=== PATIENT | male | born 1990 | race Caucasian/White ===

== ENCOUNTER 2017-04-28 02:59 | Emergency (ER) | payer OTHER ==
[~2017-04-28] VITALS: Ht 185.4 cm; Wt 102.1 kg
[~2017-04-28 02:59] MED LIST: ACID REDUCER; AMOXICILLIN500 MG PO; BACTRIM DS TAB1 EACH PO; BENTYL20 MG PO; CITALOPRAM HBR20 MG PO; EXCEDRIN MIGRA1 EAC1 PO; GUAIATUSSIN AC10 ML PO; IBUPROFEN600 MG PO; IBUPROFEN800 MG PO; KEFLEX500 MG PO; LAMOTRIGINE100 MG; NORCO 5-325 TA1 EACH PO; OMEPRAZOLE20 MG PO; PERCOCET 5-3251 EACH PO; POTASSIUM CHLO10 MEQ PO; PRILOSEC20 MG PO; PROMETHAZINE HC25 M1 PO; PROPRANOLOL HCL40 MG; PROZAC20 MG PO; SUCRALFATE1 GM PO; WELLBUTRIN XL150 MG; ZOFRAN ODT4 MG PO; ZOFRAN ODT4 MG SL
--- OUTSIDE RECORDS SUMMARY | 2017-04-28 04:59 | XMS ---
Demographics + + + | Address | [address] | | | [place] [address] | + + + | Preferred Language | Unknown | + + + | Marital Status | Unknown | + + + | Cheondoism Affiliation | Unknown | + + + | Race | Unknown | + + + | Ethnic Group | Unknown | + + + Author + + + | Author | [facility] | + + + | Organization | [facility] | + + + | Address | [address] | | | [place] [address] | + + + | Phone | | + + + Care Team Providers + + + + | Care Clinical Pharmacy Technician Name | Role | Phone | + + + + Unavailable | Unavailable | + + + + PROBLEMS + + + + + + + + | Type | Condition | ICD9-CM | [id number] | Onset | Condition | SNOMED | | | | Code | Code | Dates | Status | Code | + + + + + + + + | Assessment | Trauma to | S05.91XA | | August, | Active | [id number] | | | right eye | | | 2016 | | | + + + + + + + + ALLERGIES + + + + +--------+ | Substance | Reaction | Event Type | Date | Status | + + + + +--------+ | Depakote | anaphylaxis | Drug Allergy | August, | Active | + + + + +--------+ SOCIAL HISTORY No smoking Hx information available PLAN OF CARE VITAL SIGNS + + + + | Height | 73 in | 2016-09-05 | + + + + | Weight | 215.6 lbs | 2016-09-05 | + + + + | BMI | 28.44 kg/m2 | 2016-09-05 | + + + + | Temperature | 97.9 degrees Fahrenheit | 2016-09-05 | + + + + | Heart Rate | 73 /min | 2016-09-05 | + + + + | Blood pressure systolic | 116 mm Hg | 2016-09-05 | + + + + | Blood pressure diastolic | 62 mm Hg | 2016-09-05 | + + + + MEDICATIONS + + + + + + + +--------+ | Medicati | Instruct | Dosage | Frequenc | Start | End Date | Duration | Status | | on | ions | | y | Date | | | | + + + + + + + +--------+ | BuPROPio | Orally | 1 tablet | 24h | | | | Active | | n HCl | Once a | every | | | | | | | 150 MG | day | morning | | | | | | + + + + + + + +--------+ | Naproxen | Orally | 1 tablet | 12h | | | | Active | | 500 MG | Twice a | | | | | | | | | day | | | | | | | + + + + + + + +--------+ | Omeprazo | Orally | 1 | 24h | | | | Active | | le 40 MG | Once a | capsule | | | | | | | | day | | | | | | | + + + + + + + +--------+ | Erythrom | Ophthalm | 1 | 6h | 05 September, | 27 August, | 10 | Active | | ycin 5 | ic Four | applicat | | 2017 | 2017 | day(s) | | | MG/GM | times a | ion | | | | | | | | day | | | | | | | + + + + + + + +--------+ | Clonidin | Orally | 1 tablet | 24h | | | | Active | | e HCl | Once a | | | | | | | | 0.2 MG | day | | | | | | | + + + + + + + +--------+ RESULTS No Results PROCEDURES + + + + + | Procedure | Date Ordered | Related Diagnosis | Body Site | + + + + + | TDAP >7, IM | September 05, 2016 | | | + + + + + | IMMUNIZATION ADMIN | September 05, 2016 | | | + + + + + | Est Level IV | September 05, 2016 | | | | Extended | | | | + + + + + IMMUNIZATIONS + + + + + | Vaccine | Route | Administration Date | Status | + + + + + | TDAP >7, IM | IM Intramuscular | September 05, 2016 | Administered | + + + + +"
[2017-04-28] MEDS ORDERED: IBUPROFEN600 MG PO (05:51)
== END 2017-04-28 06:05 | disposition home or self-care (01) ==
LOC: ED 02:59
DX: S06.0X0A Concussion without loss of consciousness, initial encounter (principal); S02.2XXA Fracture of nasal bones, initial encounter for closed fracture; F17.200 Nicotine dependence, unspecified, uncomplicated; Z98.818 Other dental procedure status; Z88.8 Allergy status to other drugs, medicaments and biological substances; Y04.0XXA Assault by unarmed brawl or fight, initial encounter
CPT/HCPCS: 70160; 70450; 99284

== ENCOUNTER 2017-08-06 02:03 | Emergency (ER) | payer OTHER ==
[~2017-08-06] VITALS: Ht 185.4 cm; Wt 102.1 kg
== END 2017-08-06 03:43 | disposition home or self-care (01) ==
LOC: ED 02:03
DX: G43.809 Other migraine, not intractable, without status migrainosus (principal); F17.200 Nicotine dependence, unspecified, uncomplicated; Z88.8 Allergy status to other drugs, medicaments and biological substances
CPT/HCPCS: 70450; 80053; 81001; 85025; 96374; 96375; 99284; G0480; J1200; J2765

== ENCOUNTER 2018-06-21 03:24 | Emergency (ER) | payer SELFPAY ==
[~2018-06-21] VITALS: Ht 185.4 cm; Wt 76.2 kg
--- OUTSIDE RECORDS SUMMARY | 2018-06-21 03:28 | XMS ---
PreManage Notification: ED ENCARNACION Security Lead Mason Tender Events No recent Security Events currently on file CRITERIA MET - Group Notification CARE PROVIDERS [facility] Primary Care Current CARE PHONE: [phone] Care Guidelines exist for the following facilities: [facility] ( 07/02/2016 ) Care History Medical/Surgical 12/26/2014 [facility] ED visit: chest pain and SOB. Dx. abdominal pain. Rx.compazine and vicodin. Hernandez VISIT COUNT (12 MO.) 2 [facility] TOTAL 2 NOTE: Visits indicate total known visits. ED/UCC VISIT TRACKING (12 MO.) 06/21/2018 03:25 [facility] TYPE: Emergency COMPLAINT: - DENTAL PROBLEM 08/06/2017 02:04 [facility] [place] TYPE: Emergency COMPLAINT: - MENTAL HEALTH EVAL DIAGNOSES: - Allergy status to other drugs, medicaments and biological substances status - Headache - Nicotine dependence, unspecified, uncomplicated - Other migraine, not intractable, without status migrainosus INPATIENT VISIT TRACKING (12 MO.) No inpatient visits to display in this time frame [email or web address]
[2018-06-21] MEDS ORDERED: PENICILLIN V P500 MG PO (03:36)
[2018-06-21] MEDS ORDERED: ULTRAM50 MG PO (03:36)
== END 2018-06-21 03:54 | disposition home or self-care (01) ==
LOC: ED 03:24
DX: K08.89 Other specified disorders of teeth and supporting structures (principal); F41.9 Anxiety disorder, unspecified; F31.9 Bipolar disorder, unspecified; F43.10 Post-traumatic stress disorder, unspecified; F17.200 Nicotine dependence, unspecified, uncomplicated; Z88.8 Allergy status to other drugs, medicaments and biological substances; Z79.899 Other long term (current) drug therapy
CPT/HCPCS: 99282

== ENCOUNTER 2019-02-10 20:33 | Emergency (ER) | payer SELFPAY ==
[~2019-02-10] VITALS: Ht 185.4 cm; Wt 76.2 kg
[~2019-02-10 20:33] MED LIST changes: +PENICILLIN V P500 MG PO; +ULTRAM50 MG PO
[2019-02-10] MEDS ORDERED: BACTRIM DS TAB1 EACH PO (21:24)
== END 2019-02-10 21:41 | disposition home or self-care (01) ==
LOC: ED 20:33
PROC: 0H98XZZ Drainage of Buttock Skin, External Approach (ICD-10-PCS; principal; 2019-02-10)
DX: L05.01 Pilonidal cyst with abscess (principal); F17.200 Nicotine dependence, unspecified, uncomplicated; Z88.8 Allergy status to other drugs, medicaments and biological substances
CPT/HCPCS: 10080; 99283-25

== ENCOUNTER 2019-04-22 15:09 | Emergency (ER) | payer BC ==
[~2019-04-22] VITALS: Ht 185.4 cm; Wt 73.9 kg
--- OUTSIDE RECORDS SUMMARY | ~2019-04-22 | XMS | Encounter Summary ---
Demographics + + + | Address | [address] | | | [place] [address] | + + + | Home Phone | | + + + | Preferred Language | Unknown | + + + | Marital Status | Single | + + + | Yarsanism Affiliation | Unknown | + + + | Race | Unknown | + + + | Ethnic Group | Unknown | + + + Author + + + | Author | [facility] | | | and [place] | + + + | Organization | [facility] | | | and [place] | + + + | Address | Unknown | + + + | Phone | Unavailable | + + + Support + + +---------+ + | Name | Relationship | Address | Phone | + + +---------+ + | Jess Alonso | ECON | Unknown | | + + +---------+ + | Royer Unknown | ECON | Unknown | | + + +---------+ + Care Team Providers + +------+ + | Care [place] Worker Name | Role | Phone | + +------+ + PCP | Unavailable | + +------+ + Encounter Details +--------+ + + + + | Date | Type | Department | Care Team | Description | +--------+ + + + + | 05/22/ | [facility] | [facility] | Jeremías, | | | 2005 | Encounter | [facility] | Ivan Barahona MD [address] | | | | | [place] [address] | [address] [place] | | | | | [place], [place] | [place] [address] | | | | | [address] | [phone] | | | | | [phone] | | | +--------+ + + + + Social History + +-------+ +--------+------+ | Tobacco Use | Types | Packs/Day | Years | Date | | | | | Used | | + +-------+ +--------+------+ | Never Assessed | | | | | + +-------+ +--------+------+ + + + | Sex Assigned at | Date Recorded | | | | + + + | Not on file | | + + + + + + + | Job Start Date | Occupation | Industry | + + + + | Not on file | Not on file | Not on file | + + + + + + + + | Travel History | Travel Start | Travel End | + + + + + + | No recent travel history available. | + + documented as of this encounter Plan of Treatment Not on filedocumented as of this encounter Visit Diagnoses Not on filedocumented in this encounter"
--- OUTSIDE RECORDS SUMMARY | ~2019-04-22 | XMS | Encounter Summary ---
Demographics + + + | Address | [address] | | | [place] [address] | + + + | Home Phone | | + + + | Preferred Language | Unknown | + + + | Marital Status | Single | + + + | Hindu Affiliation | Unknown | + + + | Race | Unknown | + + + | Ethnic Group | Unknown | + + + Author + + + | Author | [facility] | | | and Rajana | + + + | Organization | [facility] | | | and Rajana [...] Team Providers + +------+ + | Care Answering Service Agent Name | Role | Phone | + +------+ + | Tono Salinas | PCP | | + +------+ + Reason for Referral Evaluate & Treat (Routine) +--------+ + + + + + | Status | Reason | Specialty | Diagnoses / | Referred By | Referred To | | | | | Procedures | Contact | Contact | +--------+ + + + + + | Closed | Specialty | Gastroenterol | Diagnoses | | Georgie, | | | Services | ogy | Rectal | [place], | MD Robin | | | Required | | bleeding | Sarah, | [address] | | | | | Abdominal | [facility] [address] | [place], | | | | | pain, | [place], [place] | [place] [address] | | | | | generalized | [address] [place] | Phone: | | | | | Diarrhea | [place], [place] | [phone] | | | | | Celiac sprue | [address] | Fax: | | | | | Tobacco | Phone: | [phone] | | | | | use disorder | [phone] | | | | | | Procedures | Fax: | | | | | | [place] | [phone] | | | | | | COLONOSCOPY | | | | | | | FLX DX | | | | | | | W/COLLJ SPEC | | | | | | | WHEN PFRMD | | | | | | | OK | | | | | | | COLONOSCOPY | | | | | | | W/BIOPSY | | | | | | | SINGLE/MULTI | | | | | | | PLE OK | | | | | | | COLSC FLX | | | | | | | W/RMVL OF | | | | | | | TUMOR POLYP | | | | | | | LESION SNARE | | | | | | | TQ OK | | | | | | | ESOPHAGOGAST | | | | | | | RODUODENOSCO | | | | | | | PY TRANSORAL | | | | | | | DIAGNOSTIC | | | | | | | OK EDG | | | | | | | TRANSORAL | | | | | | | BIOPSY | | | | | | | SINGLE/MULTI | | | | | | | PLE | | | | | | | 05/01>PEND | | | | | | | PCP UPDATE | | | +--------+ + + + + + Reason for Visit + + + | Reason | Comments | + + + | Abdominal Pain | | + + + | Emesis | | + + + | Diarrhea | | + + + Evaluate & Treat (Routine) +--------+--------+ + + + + | Status | Reason | Specialty | Diagnoses / | Referred By | Referred To | | | | | Procedures | Contact | Contact | +--------+--------+ + + + + | Closed | | Gastroenterol | Diagnoses | [place], | [facility] | | | | ogy | Abdominal | Tono Sesay, | Gastroenterol | | | | | Pain/vomitin | [facility] [address] | [address] | | | | | g and | [address] | [address] [place] | | | | | Diarrhea | [place], | [address] [place] | | | | | Procedures | [place] | [place], [place] | | | | | Office Visit | [address] | [address] | | | | | | Phone: | Phone: | | | | | | [phone] | [phone] | | | | | | Fax: | Fax: | | | | | | [phone] | [phone] | +--------+--------+ + + + + Encounter Details +--------+---------+ + + + | Date | Type | Department | Care Team | Description | +--------+---------+ + + + | 01/25/ | Office | [facility] [place] | [place], | Rectal bleeding | | 2015 | Visit | GASTROENTEROLOGY | ROB Smith [address] | (Primary Dx); | | | | [address] [place] | [place], [place] [address] | Abdominal pain, | | | | [address] [place], [place] | [place], [place] | generalized; | | | | [address] | [address] | Diarrhea; Celiac | | | | [phone] | | sprue; Tobacco use | | | | | | disorder; Panic | | | | | | disorder | +--------+---------+ + + + Social History + + + +--------+------+ | Tobacco Use | Types | Packs/Day | Years | Date | | | | | Used | | + + + +--------+------+ | Current Every Day | Cigarettes | 0.5 | | | | Smoker | | | | | + + + +--------+------+ + + | Tobacco Cessation: Ready to Quit: No; Counseling Given: Yes | + + + + +---------+ + | Alcohol Use | Drinks/Week | oz/Week | Comments | + + +---------+ + | No | 0 Standard drinks | 0.0 | | | | or equivalent | | | + + +---------+ + + + + | Sex Assigned at [...] + + documented as of this encounter Last Filed Vital Signs + + + + + | Vital Sign | Reading | Time Taken | Comments | + + + + + | Blood Pressure | 120/70 | 01/25/2015 8:54 AM | | | | | PDT | | + + + + + | Pulse | 73 | 01/25/2015 8:54 AM | | | | | PDT | | + + + + + | Temperature | 36.5 C (97.7 F) | 01/25/2015 8:54 AM | | | | | PDT | | + + + + + | Respiratory Rate | 16 | 01/25/2015 8:54 AM | | | | | PDT | | + + + + + | Oxygen Saturation | 94% | 01/25/2015 8:54 AM | | | | | PDT | | + + + + + | Inhaled Oxygen | - | - | | | Concentration | | | | + + + + + | Weight | 96.7 kg (213 lb 3.2 | 01/25/2015 8:54 AM | | | | oz) | PDT | | + + + + + | Height | 185.4 cm (6' 1") | 01/25/2015 8:54 AM | | | | | PDT | | + + + + + | Body Mass Index | 28.13 | 01/25/2015 8:54 AM | | | | | PDT | | + + + + + documented in this encounter Patient Instructions Patient Instructions Sarah Cheatham ARNP - 01/25/2015 9:15 AM PDT Gluten-Free Diet for Celiac Disease You ve been told that you have celiac disease. This means that you are sensitive to a pro tein called gluten. Gluten is found in certain grains. When you ingest gluten, your immune s ystem causes harm to your intestines. The treatment for celiac disease is to avoid foods and products that contain gluten. You will need to do this for the rest of your life. Avoid the temptation to cheat, even a small amount of gluten can cause symptoms to return. And it canharm to your body. This sheet gives you the basics about a gluten-free diet. If you need help, a registered dietitian (RD) can teach you what foods and other products have glut en and how to avoid them. Always Read Labels! Many foods may contain gluten, even if you think they don t. Get into the habit of readin g ingredient labels before you eat. Choosing Foods The most common source of gluten is wheat flour (this includes white flour). Wheat fl our is used to make many baked goods, including breads, pastas, cereals, pastries, and pizza dough. But gluten is also found in many foods that you might not think would have it. You w ill need to read food labels to look for gluten in everything you eat. But your diet does no t need to be boring. Many foods are naturally gluten-free. And many foods commonly made with wheat flour now come in gluten-free forms. But keep in mind that if something is labeled wheat-free it may not be also gluten-free. Foods to Avoid Foods You Can Eat Bread, cereals, pasta, pastries, couscous, or pizza dough made with wheat flour (this inclu niko white flour and semolina) Bread, cereals, pasta, pastries, or pizza dough made with rice flour, almond flour, beans, potatoes, or other substitutes Foods containing rye, barley (including malt), spelt, kamut, or bulgur Foods containing cor n, rice, amaranth, buckwheat, millet, quinoa, or tapioca Processed meats Fresh meats and seafood (beef, chicken, turkey, licea, pork, fish, shellfish ) Some dairy products with additives Many plain dairy products Many sauces, gravies, dressings, and condiments Vinegar, oils, and gluten-free substitutes Some granola bars and energy bars Gluten-free granola bars and energy bars Some beers and spirits Wine, and gluten-free beers and spirits Some soups Gluten-free soups Fruits and vegetables that are fried or breaded Fresh fruits and vegetables Many packaged foods Beans Oats (check with your healthcare provider) Tofu Communion wafers Gluten-free communion wafers Avoiding Accidental Exposure to Gluten Staying gluten-free means always being aware. Even if you are very careful, mistakes can murray ppen. The food you eat can t come into contact with gluten. Your meals must be made with u tensils that have not touched foods that contain gluten. Shared knives, cutting boards, toas ters, and storage containers are risks for gluten exposure. Shared condiments may have crumb s that contain gluten. At restaurants, parties, and other places where you eat food prepared by others, ask how the food was made. Gluten can also be found in some non-food items. Some medications contain gluten. So do some vitamin supplements. Ask your pharmacist before taki ng a medication or supplement. Also, some shampoos, lotions, makeup, glues, soaps, and other products contain gluten. It can be possible to ingest some gluten when using these projects . This is called cross-contamination. For example, this can happen if you use a lotion that has gluten and then touch food you eat. Also note that Play-Hina and similar products have gl uten. Any adult or child with celiac disease should wash their hands after handling these. Coping with Gluten-Free Living Living gluten-free can be hard. While there are many gluten-free foods now that you can buy , it is still a big change for many people. You may be upset that you can t eat your favor ite foods,eat freely at restaurants, parties, or over the holidays. Household members may also be upset by the strict controls over food. If you face problems like these, think about joining a celiac disease support group. Support groups offer tips on how to make a gluten-f ree lifestyle easier on you and the people you live with. You can find ways to involve the p eople in your household. There are many ways to make gluten-free group meals. See More Re sources below for help in finding a group. Bring safe foods that you enjoy to parties and school or work events. This can help you corrie id the urge to grab something you shouldn t eat. Following Up with Your Health Care Provider You should see your health care provider at least once a year for a celiac checkup. A simpl e blood test can show if your celiac disease is under control. If you are having symptoms, y our health care provider can help you find sources of gluten you may have missed. More Resources To learn more about managing celiac disease, try these resources: Celiac Disease Foundation: www.celiac.org Academy of Nutrition and Dietetics: www.eatright.org National Digestive Diseases Information Clearinghouse: www.digestive.niddk.nih.gov 4103-[address]657 [address] [place] [address]. All [facility] ts reserved. This information is not intended as a substitute for professional medical care. Always follow your healthcare professional's instructions. documented in this encounter Progress Notes Sarah Cheatham ARNP - 01/25/2015 9:06 AM PDTFormatting of this note might be differe nt from the original. Tonio Crowder is a 24 y.o. male referred by ROB Hill for evaluation and tr eatment of rectal bleeding and hematemesis History of present illness: Patient notes that he was having issues related to rectal bleeding and hematemesis. Startin g 04/2014. Had multiple tests which were all negative with the exception of celiac antibodies . He has not been followed a gluten free diet. Admits to being lactose intolerant as well. He continues to have abdominal pains. Abdominal pains seemed to worsen following hernia rep air 12/2013. Pain is in upper abdomen. Pain is intermittent daily. Pain is described as cram ping and sharp. Pain can also be dull. Nothing seems to make better or worse. Rectal bleeding lasted about 1 month. Last episode was about 1 month ago. He is not losing weight due to any symptoms. Has BM daily. BM are mainly diarrhea. Can have 5-8 BM per day. Denies rashes or mouth sores. Complains of generalized joint pains. Allergies Allergen Reactions Valproic Acid Shortness Of Breath Citalopram Other (See Comments) Sedation Past Medical History Diagnosis Date Major depression (HCC) Anxiety Common migraine Knee pain, bilateral Obesity Abdominal pain, left lower quadrant Vomiting alone Diarrhea Past Surgical History Procedure Laterality Date Hernia repair Family History Problem Relation Age of Onset Diabetes Mother Cancer Mother uterine Alcohol abuse Father History Social History Marital Status: Single Spouse Name: N/A Number of Children: 2 Years of Education: N/A Occupational History Not on file. Social History Main Topics Smoking status: Current Every Day Smoker -- 0.50 packs/day Types: Cigarettes Smokeless tobacco: Not on file Alcohol Use: No Drug Use: No Sexual Activity: Not on file Other Topics Concern Not on file Social History Narrative Review of systems: Constitutional:Denies any fevers, chills, or unintentional weight loss. Eyes:Complains of dry,burning eyes. Respiratory:Denies shortness of breath, cough or wheezing. Gastrointestinal:Complains of diarrhea, bloody stools, hematemesis, nausea, vomiting, heart burn, and abdominal pain. Denies constipation, hemorrhoids or dysphagia. Skin: Denies rashes. Neurological:Complains of memory difficulties and frequent bothersome headaches. Denies num bness or tingling, muscle weakness, paralysis of arms or legs, epilepsy or seizure. ENT:Denies hearing loss, hearing aids, hearing ringing or buzzing in ears, constantly runny nose, nasal obstruction, hayfever, dentures, or hoarseness. Cardiovascular:Denies chest pain, palpitations, or swelling to legs :Denies painful urination, urine incontinence, waking up on average more than once per ni ght to urinate, bloody urine, or impotence Musculoskeletal:Complains of swollen joints, painful back, and painful joints. Psychiatric:Complains of depression and anxiety. Endocrine:Denies enlarged thyroid Heme/lymph:Denies anemia or enlarged lymph glands. Physical exam: General: well developed, well nourished, in no acute distress. Head: normocephalic and atraumatic Eyes: Sclera clear Mouth: MMM Lungs: Clear to auscultate bilaterally and throughout Heart: regular rate and rhythm Abdomen: Soft, diffusely tender to palpation, non distended, bowel tones positive times 4 quadra nts, negative Kelsey's sign, negative rebound tenderness, no guarding, no hepatosplenomegaly palpated. Rectal: Will be done prior to procedure Msk: symmetrical with no deformity, with normal posture and gait, normal strength. Extremities: no clubbing, cyanosis, edema, or deformity noted Neurologic: no focal deficits, cranial nerves II-XII grossly intact Skin: intact without lesions or rashes. Psych: alert and cooperative; normal mood and affect; normal attention span and concentration. No visits with results within 1 Month(s) from this visit. Latest known visit with results is: Abstract on 10/18/2014 Component Date Value Ref Range Status MCH 09/10/2014 30.5 Final MCHC 09/10/2014 34.6 Final BASOPHILS % 09/10/2014 0.4 Final ESR 09/10/2014 8 Final ANION GAP 09/10/2014 10 Final BUN/Creatinine Ratio 09/10/2014 7.3 Final Osmolality Calc 09/10/2014 277.0 Final Globulin 09/10/2014 2.8 Final Albumin/Globulin Ratio 09/10/2014 1.54 Final Giardia Ab 05/16/2014 Negative Final Trichomonas vaginosis 05/16/2014 Non Seen Final Creatinine, External 09/10/2014 1.1 0.7 - 1.3 Final eGFR, External 09/10/2014 >60 60 - [id number] Final WBC, External 09/10/2014 9.4 4.5 - 10 Final HGB, External 09/10/2014 16.0 11.8 - 16 Final HCT, External 09/10/2014 46.3 38.9 - 51.5 Final PLT, External 09/10/2014 254 150 - 400 Final Neutrophils %, External 09/10/2014 63.3 Final Lymphocytes %, External 09/10/2014 23.8 Final Monocytes %, External 09/10/2014 10.3 Final Eosinophils %, External 09/10/2014 2.2 Final Neutrophils, Absolute, External 09/10/2014 6.0 2 - 7.3 Final Lymphocytes, Absolute, External 09/10/2014 2.2 0.5 - 3.3 Final Monocytes, Absolute, External 09/10/2014 1.0 0.2 - 1 Final Eosinophils, Absolute 09/10/2014 0.2 0 - 0.4 Final Basophils, Absolute 09/10/2014 0 0 - 0.1 Final RBC, External 09/10/2014 5.26 4.4 - 6 Final MCV, External 09/10/2014 88 80 - 100 Final RDW, External 09/10/2014 13 9.6 - 14.6 Final Sodium, External 09/10/2014 134* 135 - 145 Final Potassium, External 09/10/2014 3.4* 3.5 - 5.1 Final Chloride, External 09/10/2014 102 100 - 110 Final Carbon Dioxide, External 09/10/2014 25 22 - 32 Final Calcium, External 09/10/2014 9.4 8.3 - 10.5 Final Protein, Total, External 09/10/2014 7.1 6 - 8 Final Albumin, External 09/10/2014 4.3 3.2 - 5.5 Final ALP, External 09/10/2014 94* 32 - 92 Final AST, External 09/10/2014 35 5 - 150 Final ALT, External 09/10/2014 42 10 - 60 Final Glucose, External 09/10/2014 116* 70 - 100 Final BUN, External 09/10/2014 8 7 - 23 Final Tissue Transglutaminase IgA 05/14/2014 128* 7 Final Tissue Transglutaminase IgG 05/14/2014 1.1 7 Final Endomysial Ab, IgA, Quant 05/14/2014 1:80 Final Assessment: Plan: Patient to have EGD and colonoscopy for further evaluation. The procedural techniques, risk s, indications, and alternatives were discussed. Among the risks, are perforation, bleeding , infection, allergic/adverse reactions to medications, and cardiovascular complications. E ach of these could result in hospitalization, additional procedures (including surgery), or other life threatening complications. Patient verbalized understanding. Risk factors to col o-rectal cancer discussed with patient including smoking, obesity, excessive red meat ingest ion, advancing age and first degree family relative with history of colo-rectal cancer discu ssed with patient. Patient to call with any questions or concerns prior to procedure. Highly discouraged tobacco use. He is to begin a gluten free diet. Due to diagnosis of celiac disease, symptoms can be asso ciated with gluten exposure. Procedures will determine if evidence of IBD. Recommend procedure with anesthesia due to panic disorder. Will follow up with results. Patient is to call with any question or concerns. Any fevers, chills, chest pain, SOB or other serious symptoms patient is to call the office or go to ER . Cc: ROB Hill This note was dictated using voice recognition software. Please contact me if there are an y questions regarding its content. Electronically signed by ROB Branch at 01/20 9:27 PM PDTdocumented in this encounter Plan of Treatment + + +--------+ + + | Name | Type | Priori | Associated Diagnoses | Order Schedule | | | | ty | | | + + +--------+ + + | Ambulatory referral | Outpatient | Routin | Rectal bleeding | Expected: 02/03/2015 | | to Gastroenterology | Referral | e | Abdominal pain, | (Approximate), | | (GEORGIE) | | | generalized | Expires: 01/25/2016 | | | | | Diarrhea Celiac | | | | | | sprue Tobacco use | | | | | | disorder | | + + +--------+ + + documented as of this encounter Visit Diagnoses + + | Diagnosis | + + | Rectal bleeding - Primary Hemorrhage of rectum and anus | + + | Abdominal pain, generalized | + + | Diarrhea | + + | Celiac sprue Celiac disease | + + | Tobacco use disorder | + + | Panic disorder Panic disorder without agoraphobia | + + documented in this encounter
--- OUTSIDE RECORDS SUMMARY | ~2019-04-22 | XMS | Encounter Summary ---
Demographics + + + | Address | [address] | | | [place] [address] | + + + | Home Phone | | + + + | Preferred Language | Unknown | + + + | Marital Status | Single | + + + | Pentecostal Affiliation | Unknown | + + + | Race | Unknown | + + + | Ethnic Group | Unknown | + + + Author + + + | Author | [facility] | | | and Rajana | + + + | Organization | [facility] | | | and Rajana | + + + | Address | Unknown | + + + | Phone | Unavailable | + + + Support + + +---------+ + | Name | Relationship | Address | Phone | + + +---------+ + | Jess Alonso | ECON | Unknown | | + + +---------+ + | Royer Roberto Carlos | ECON | Unknown | | + + +---------+ + Care Team Providers + +------+ + | Care Thread Cutter Name | Role | Phone | + +------+ + | Tono Salinas | PCP | | + +------+ + Reason for Visit +--------+ + | Reason | Comments | +--------+ + | Other | egd/colon | +--------+ + Encounter Details +--------+ + + + + | Date | Type | Department | Care Team | Description | +--------+ + + + + | 02/01/ | [facility] | [facility], | Other (egd/colon) | | 2014 | | GASTROENTEROLOGY | ROB Smith [address] | | | | | [address] [place] | [place], [place] [address] | | | | | [address] [place], [place] | [place], [place] | | | | | [address] | [address] | | | | | [phone] | | | +--------+ + + + + Social History + + + +--------+------+ | Tobacco Use | Types | Packs/Day | Years | Date | | | | | Used | | + + + +--------+------+ | Current Every Day | Cigarettes | 0.5 | | | | Smoker | | | | | + + + +--------+------+ + + +---------+ + | Alcohol Use [...]
--- OUTSIDE RECORDS SUMMARY | ~2019-04-22 | XMS | Encounter Summary ---
Demographics + + + | Address | [address] | | | [place] [address] | + + + | Home Phone | | + + + | Preferred Language | Unknown | + + + | Marital Status | Single | + + + | Worship Affiliation | Unknown | + + + | Race | Unknown | + + + | Ethnic Group | Unknown | + + + Author + + + | Author | [facility] | | | and Rajana | + + + | Organization | [facility] | | | and Rajana | + + + | Address | Unknown | + + + | Phone | Unavailable | + + + Support + + +---------+ + | Name | Relationship | Address | Phone | + + +---------+ + | Jess Alosno | ECON | Unknown | | + + +---------+ + | Royer Unknown | ECON | Unknown | | + + +---------+ + Care Team Providers + +------+ + | Care Catering Cook Name | Role | Phone | + +------+ + PCP | Unavailable | + +------+ + Encounter Details +--------+ + + + + | Date | Type | Department | Care Team | Description | +--------+ + + + + | 05/22/ | [facility] | [facility] | Jeremías, | | | 2005 | Encounter | [facility] | Ivan Barahona MD [address] | | | | | [place] [address] | [address] [place] | | | | | [place], [place] | [place] [address] | | | | | [address] | [phone] | | | | | [phone] | | | +--------+ + + + [...]
--- OUTSIDE RECORDS SUMMARY | ~2019-04-22 | XMS | Encounter Summary ---
Demographics + + + | Address | [address] | | | [place] [address] | + + + | Home Phone | | + + + | Preferred Language | Unknown | + + + | Marital Status | Single | + + + | Protestant Affiliation | Unknown | + + + | Race | Unknown | + + + | Ethnic Group | Unknown | + + + Author + + + | Author | [facility] | | | and [place]ana | + + + | Organization | [facility] | | | and Rajana | [...] Team Providers + +------+ + | Care Final Assembly And Packing Supervisor Name | Role | Phone | + +------+ + PCP | Unavailable | + +------+ + Encounter Details +--------+ + + + + | Date | Type | Department | Care Team | Description | +--------+ + + + + | 09/23/ | Abstract | [facility] | [place], | | | 2014 | | GASTROENTEROLOGY | ROB Smith [address] | | | | | [address] [place] | [place] | | | | | [address] [place], [place] | [place], [place] | | | | | [address] | [address] | | | | | [phone] | | | +--------+ + + + [...] Not on filedocumented as of this encounter Procedures + +--------+ + + + | Procedure Name | Priori | Date/Time | Associated Diagnosis | Comments | | | ty | | | | + +--------+ + + + | TISSUE | Routin | 05/13/2014 | | Results for this | | TRANSGLUTAMINASE | e | | | procedure are in the | | (IGA + IGG) | | | | results section. | + +--------+ + + + | ENDOMYSIAL AB, IGA | Routin | 05/13/2014 | | Results for this | | | e | | | procedure are in the | | | | | | results section. | + +--------+ + + + | EXTERNAL LAB: BUN | Routin | 05/12/2014 | | Results for this | | | e | | | procedure are in the | | | | | | results section. | + +--------+ + + + | EXTERNAL LAB: | Routin | 05/12/2014 | | Results for this | | GLUCOSE | e | | | procedure are in the | | | | | | results section. | + +--------+ + + + | EXTERNAL LAB: ANNA | Routin | 05/12/2014 | | Results for this | | | e | | | procedure are in the | | | | | | results section. | + +--------+ + + + | EXTERNAL LAB: ALT | Routin | 05/12/2014 | | Results for this | | | e | | | procedure are in the | | | | | | results section. | + +--------+ + + + | EXTERNAL LAB: AST | Routin | 05/12/2014 | | Results for this | | | e | | | procedure are in the | | | | | | results section. | + +--------+ + + + | EXTERNAL LAB: | Routin | 05/12/2014 | | Results for this | | ALKALINE PHOSPHATASE | e | | | procedure are in the | | | | | | results section. | + +--------+ + + + | EXTERNAL LAB: | Routin | 05/12/2014 | | Results for this | | BILIRUBIN, TOTAL | e | | | procedure are in the | | | | | | results section. | + +--------+ + + + | EXTERNAL LAB: | Routin | 05/12/2014 | | Results for this | | ALBUMIN | e | | | procedure are in the | | | | | | results section. | + +--------+ + + + | EXTERNAL LAB: | Routin | 05/12/2014 | | Results for this | | PROTEIN, TOTAL | e | | | procedure are in the | | | | | | results section. | + +--------+ + + + | EXTERNAL LAB: | Routin | 05/12/2014 | | Results for this | | CALCIUM | e | | | procedure are in the | | | | | | results section. | + +--------+ + + + | EXTERNAL LAB: CARBON | Routin | 05/12/2014 | | Results for this | | DIOXIDE | e | | | procedure are in the | | | | | | results section. | + +--------+ + + + | EXTERNAL LAB: | Routin | 05/12/2014 | | Results for this | | CHLORIDE | e | | | procedure are in the | | | | | | results section. | + +--------+ + + + | EXTERNAL LAB: | Routin | 05/12/2014 | | Results for this | | POTASSIUM | e | | | procedure are in the | | | | | | results section. | + +--------+ + + + | EXTERNAL LAB: SODIUM | Routin | 05/12/2014 | | Results for this | | | e | | | procedure are in the | | | | | | results section. | + +--------+ + + + | EXTERNAL LAB: | Routin | 05/12/2014 | | Results for this | | URINALYSIS | e | | | procedure are in the | | | | | | results section. | + +--------+ + + + | EXTERNAL LAB: CBC | Routin | 05/12/2014 | | Results for this | | | e | | | procedure are in the | | | | | | results section. | + +--------+ + + + | TRICHROME STAIN | Routin | 05/12/2014 | | Results for this | | | e | | | procedure are in the | | | | | | results section. | + +--------+ + + + | EXTERNAL LAB: EGFR | Routin | 05/12/2014 | | Results for this | | | e | | | procedure are in the | | | | | | results section. | + +--------+ + + + | EXTERNAL LAB: | Routin | 05/12/2014 | | Results for this | | CREATININE | e | | | procedure are in the | | | | | | results section. | + +--------+ + + + | C. DIFFICILE TOXIN, | Routin | 05/12/2014 | | Results for this | | ANTIBODY | e | | | procedure are in the | | | | | | results section. | + +--------+ + + + | CULTURE, STOOL | Routin | 05/12/2014 | | Results for this | | RESULT | e | | | procedure are in the | | | | | | results section. | + +--------+ + + + | SEDIMENTATION RATE | Routin | 05/12/2014 | | Results for this | | | e | | | procedure are in the | | | | | | results section. | + +--------+ + + + | FECAL LEUKOCYTES | RODNEY | 05/12/2014 | | Results for this | | | | | | procedure are in the | | | | | | results section. | + +--------+ + + + | GIARDIA JOAQUIM EIA, | Routin | 05/12/2014 | | Results for this | | STOOL | e | | | procedure are in the | | | | | | results section. | + +--------+ + + + | COMPREHENSIVE | Routin | 05/12/2014 | | Results for this | | METABOLIC PANEL | e | | | procedure are in the | | | | | | results section. | + +--------+ + + + documented in this encounter Results Endomysial Ab IgA (05/13/2014) + + + + + + | Component | Value | Ref Range | Performed | Pathologist | | | | | At | Signature | + + + + + + | Endomysial | 1.80 (A) | 1.10 | [facility] | | | [place], | | | [facility] | | | Qual | | | MEDICAL | | | | | | CENTER - | | | | | | LABORATORY | | + + + + + + + + | Specimen | + + | Blood specimen | | (specimen) | + + + + + + + | Performing | Address | City/State/Zipcode | Phone Number | | Organization | | | | + + + + + | [facility] | [address] | [place] | | | [facility] | | [address] | | | - LABORATORY | | | | + + + + + Tissue Transglutaminase (IgA + IgG) (05/13/2014) + +---------+ + + + | Component | Value | Ref Range | Performed | Pathologist | | | | | At | Signature | + +---------+ + + + | Tissue | 1.1 (A) | 7 - 10 U/mL | | | | Transglutam | | | | | | inase IgG | | | | | + +---------+ + + + | Tissue | >128 | 7 - 10 U/mL | | | | Transglutam | | | | | | inase IgA | | | | | + +---------+ + + + + + | Specimen | + + | Blood specimen | | (specimen) | + + External Lab: Urinalysis (05/12/2014) + + + + + + | Component | Value | Ref Range | Performed | Pathologist | | | | | At | Signature | + + + + + + | UA Blood, | Trace | | EXTERNAL | | | External | | | LAB | | + + + + + + | UA Glucose, | Normal | | EXTERNAL | | | External | | | LAB | | + + + + + + | UA Ketones, | 15 (A) | 0 - 0 | EXTERNAL | | | External | | | LAB | | + + + + + + | UA Ph, | 6 | 5 - 9 | EXTERNAL | | | External | | | LAB | | + + + + + + | UA | Negative | | EXTERNAL | | | Proteins, | | | LAB | | | External | | | | | + + + + + + | UA Specific | 1.023 | 1.005 - 1.03 | EXTERNAL | | | [place], | | | LAB | | | External | | | | | + + + + + + | UA | Negative | | EXTERNAL | | | Leukocyte | | | LAB | | | Esterase, | | | | | | External | | | | | + + + + + + | COLLECTION | clean catch | | EXTERNAL | | | METHOD 1 | | | LAB | | + + + + + + | Color | Yellow | | EXTERNAL | | | | | | LAB | | + + + + + + | Clarity | Clear | | EXTERNAL | | | | | | LAB | | + + + + + + | Bilirubin, | Negative | Negative | EXTERNAL | | | Urine | | | LAB | | + + + + + + | Nitrite, | Negative | Negative | EXTERNAL | | | Urine | | | LAB | | + + + + + + | Urobilinoge | Normal | < 0.2 mg/dL, | EXTERNAL | | | n, Urine | | 1.0 mg/dL, 4.0 | LAB | | | | | mg/dL, Normal, | | | | | | 1.0 E.U./dL, | | | | | | 0.2 E.U./dL, | | | | | | 0.2 mg/dL, | | | | | | Negative, 1 | | | | | | mg/dL, <2.0 | | | | | | mg/dL | | | + + + + + + | CASTS | Negative | | EXTERNAL | | | | | | LAB | | + + + + + + | WBC UA | 0-2 | 0 - 2 /HPF | EXTERNAL | | | | | | LAB | | + + + + + + | Epithelial | Negative | | EXTERNAL | | | Cells | | | LAB | | + + + + + + | CRYSTAL UA | Negative | | EXTERNAL | | | | | | LAB | | + + + + + + | BACTERIA UA | Negative | Negative /HPF | EXTERNAL | | | | | | LAB | | + + + + + + + + | Resulting Agency Comment | + + | [facility] | + + + +---------+ + + | Performing | Address | City/State/Zipcode | Phone Number | | Organization | | | | + +---------+ + + | EXTERNAL LAB | | | | + +---------+ + + External Lab: CBC (05/12/2014) + + + + + + | Component | Value | Ref Range | Performed | Pathologist | | | | | At | Signature | + + + + + + | WBC, | 6.1 | 4.5 - 11 | EXTERNAL | | | External | | | LAB | | + + + + + + | HGB, | 15.2 | 13.5 - 18 | EXTERNAL | | | External | | | LAB | | + + + + + + | HCT, | 47.9 | 41 - 50 | EXTERNAL | | | External | | | LAB | | + + + + + + | PLT, | 221 | 140 - 440 | EXTERNAL | | | External | | | LAB | | + + + + + + | Neutrophils | 60.5 | 39 - 80 | EXTERNAL | | | %, | | | LAB | | | External | | | | | + + + + + + | Lymphocytes | 23.6 (A) | 24 - 44 | EXTERNAL | | | %, | | | LAB | | | External | | | | | + + + + + + | Monocytes | 11.1 | 0 - 12 | EXTERNAL | | | %, External | | | LAB | | + + + + + + | Eosinophils | 2.5 | 0 - 6 | EXTERNAL | | | %, | | | LAB | | | External | | | | | + + + + + + | RBC, | 5.19 | 4.3 - 5.7 | EXTERNAL | | | External | | | LAB | | + + + + + + | MCV, | 92 | 81 - 99 | EXTERNAL | | | External | | | LAB | | + + + + + + | RDW, | 13.1 | 10.5 - 15 | EXTERNAL | | | External | | | LAB | | + + + + + + | MCH | 29.0 | 27.0 - 33.0 pg | EXTERNAL | | | | | | LAB | | + + + + + + | MCHC | 32.0 | 30.0 - 36.0 % | EXTERNAL | | | | | | LAB | | + + + + + + | % Basophils | 2.3 (A) | 0.0 - 2.0 % | EXTERNAL | | | | | | LAB | | + + + + + + + + | Resulting Agency Comment | + + | [facility] | + + + +---------+ + + | Performing | Address | City/State/Zipcode | Phone Number | | Organization | | | | + +---------+ + + | EXTERNAL LAB | | | | + +---------+ + + Comprehensive Metabolic Panel (05/12/2014) + +-------+ + + + | Component | Value | Ref Range | Performed | Pathologist | | | | | At | Signature | + +-------+ + + + | Anion Gap | 9 | 7 - 21 mmol/L | [facility] | | | | | | [facility] | | | | | | MEDICAL | | | | | | CENTER - | | | | | | LABORATORY | | + +-------+ + + + | Bun/Creatin | 11.9 | 6.0 - 28.6 | [facility] | | | ine | | Ratio | [facility] | | | | | | MEDICAL | | | | | | CENTER - | | | | | | LABORATORY | | + +-------+ + + + | Globulin | 2.4 | 1.8 - 3.5 g/dL | [facility] | | | | | | [facility] | | | | | | MEDICAL | | | | | | CENTER - | | | | | | LABORATORY | | + +-------+ + + + | Albumin/Eva | 1.7 | 1.1 - 2.4 Ratio | [facility] | | | bulin Ratio | | | [facility] | | | | | | MEDICAL | | | | | | CENTER - | | | | | | LABORATORY | | + +-------+ + + + + + | Specimen | + + | Blood specimen | | (specimen) | + + + + + + + | Performing | Address | City/State/Zipcode | Phone Number | | Organization | | | | + + + + + | [facility] | [address] | [place] | | | [facility] | | [address] | | | - LABORATORY | | | | + + + + + External Lab: Lipase (05/12/2014) + +-------+ + + + | Component | Value | Ref Range | Performed | Pathologist | | | | | At | Signature | + +-------+ + + + | Lipase, | 7 (A) | 11 - 92 | EXTERNAL | | | External | | | LAB | | + +-------+ + + + + + | Resulting Agency Comment | + + | [facility] | + + + +---------+ + + | Performing | Address | City/State/Zipcode | Phone Number | | Organization | | | | + +---------+ + + | EXTERNAL LAB | | | | + +---------+ + + External Lab: Bilirubin, Total (05/12/2014) + +-------+ + + + | Component | Value | Ref Range | Performed | Pathologist | | | | | At | Signature | + +-------+ + + + | Bilirubin, | 0.5 | 0 - 1.2 | EXTERNAL | | | Total, | | | LAB | | | External | | | | | + +-------+ + + + + + | Resulting Agency Comment | + + | [facility] | + + + +---------+ + + | Performing | Address | City/State/Zipcode | Phone Number | | Organization | | | | + +---------+ + + | EXTERNAL LAB | | | | + +---------+ + + External Lab: Albumin (05/12/2014) + +-------+ + + + | Component | Value | Ref Range | Performed | Pathologist | | | | | At | Signature | + +-------+ + + + | Albumin, | 4.0 | 3.5 - 5 | EXTERNAL | | | External | | | LAB | | + +-------+ + + + + + | Resulting Agency Comment | + + | [facility] | + + + +---------+ + + | Performing | Address | City/State/Zipcode | Phone Number | | Organization | | | | + +---------+ + + | EXTERNAL LAB | | | | + +---------+ + + External Lab: Protein, Total (05/12/2014) + +---------+ + + + | Component | Value | Ref Range | Performed | Pathologist | | | | | At | Signature | + +---------+ + + + | Protein, | 0.4 (A) | 6 - 8 | EXTERNAL | | | Total, | | | LAB | | | External | | | | | + +---------+ + + + + + | Resulting Agency Comment | + + | [facility] | + + + +---------+ + + | Performing | Address | City/State/Zipcode | Phone Number | | Organization | | | | + +---------+ + + | EXTERNAL LAB | | | | + +---------+ + + External Lab: VIANCA (05/12/2014) + +-------+ + + + | Component | Value | Ref Range | Performed | Pathologist | | | | | At | Signature | + +-------+ + + + | BUN, | 10 | 6 - 23 | EXTERNAL | | | External | | | LAB | | + +-------+ + + + + + | Resulting Agency Comment | + + | [facility] | + + + +---------+ + + | Performing | Address | City/State/Zipcode | Phone Number | | Organization | | | | + +---------+ + + | EXTERNAL LAB | | | | + +---------+ + + External Lab: Glucose (05/12/2014) + +---------+ + + + | Component | Value | Ref Range | Performed | Pathologist | | | | | At | Signature | + +---------+ + + + | Glucose, | 108 (A) | 70 - 100 | EXTERNAL | | | External | | | LAB | | + +---------+ + + + + + | Resulting Agency Comment | + + | [facility] | + + + +---------+ + + | Performing | Address | City/State/Zipcode | Phone Number | | Organization | | | | + +---------+ + + | EXTERNAL LAB | | | | + +---------+ + + External Lab: ALT (05/12/2014) + +-------+ + + + | Component | Value | Ref Range | Performed | Pathologist | | | | | At | Signature | + +-------+ + + + | ALT, | 52 | 7 - 52 | EXTERNAL | | | External | | | LAB | | + +-------+ + + + + + | Resulting Agency Comment | + + | [facility] | + + + +---------+ + + | Performing | Address | City/State/Zipcode | Phone Number | | Organization | | | | + +---------+ + + | EXTERNAL LAB | | | | + +---------+ + + External Lab: AST (05/12/2014) + +-------+ + + + | Component | Value | Ref Range | Performed | Pathologist | | | | | At | Signature | + +-------+ + + + | AST, | 27 | 13 - 39 | EXTERNAL | | | External | | | LAB | | + +-------+ + + + + + | Resulting Agency Comment | + + | [facility] | + + + +---------+ + + | Performing | Address | City/State/Zipcode | Phone Number | | Organization | | | | + +---------+ + + | EXTERNAL LAB | | | | + +---------+ + + External Lab: Alkaline Phosphatase (05/12/2014) + +-------+ + + + | Component | Value | Ref Range | Performed | Pathologist | | | | | At | Signature | + +-------+ + + + | ALP, | 105 | 30 - 128 | EXTERNAL | | | External | | | LAB | | + +-------+ + + + + + | Resulting Agency Comment | + + | [facility] | + + + +---------+ + + | Performing | Address | City/State/Zipcode | Phone Number | | Organization | | | | + +---------+ + + | EXTERNAL LAB | | | | + +---------+ + + External Lab: Calcium (05/12/2014) + +-------+ + + + | Component | Value | Ref Range | Performed | Pathologist | | | | | At | Signature | + +-------+ + + + | Calcium, | 8.8 | 8.4 - 10.2 | EXTERNAL | | | External | | | LAB | | + +-------+ + + + + + | Resulting Agency Comment | + + | [facility] | + + + +---------+ + + | Performing | Address | City/State/Zipcode | Phone Number | | Organization | | | | + +---------+ + + | EXTERNAL LAB | | | | + +---------+ + + External Lab: Carbon Dioxide (05/12/2014) + +--------+ + + + | Component | Value | Ref Range | Performed | Pathologist | | | | | At | Signature | + +--------+ + + + | Carbon | 24 (A) | - | EXTERNAL | | | Dioxide, | | | LAB | | | External | | | | | + +--------+ + + + + + | Resulting Agency Comment | + + | [facility] | + + + +---------+ + + | Performing | Address | City/State/Zipcode | Phone Number | | Organization | | | | + +---------+ + + | EXTERNAL LAB | | | | + +---------+ + + External Lab: Chloride (05/12/2014) + +-------+ + + + | Component | Value | Ref Range | Performed | Pathologist | | | | | At | Signature | + +-------+ + + + | Chloride, | 107 | 95 - 112 | EXTERNAL | | | External | | | LAB | | + +-------+ + + + + + | Resulting Agency Comment | + + | [facility] | + + + +---------+ + + | Performing | Address | City/State/Zipcode | Phone Number | | Organization | | | | + +---------+ + + | EXTERNAL LAB | | | | + +---------+ + + External Lab: Potassium (05/12/2014) + +-------+ + + + | Component | Value | Ref Range | Performed | Pathologist | | | | | At | Signature | + +-------+ + + + | Potassium, | 3.5 | 3.5 - 5.1 | EXTERNAL | | | External | | | LAB | | + +-------+ + + + + + | Resulting Agency Comment | + + | [facility] | + + + +---------+ + + | Performing | Address | City/State/Zipcode | Phone Number | | Organization | | | | + +---------+ + + | EXTERNAL LAB | | | | + +---------+ + + External Lab: Sodium (05/12/2014) + +-------+ + + + | Component | Value | Ref Range | Performed | Pathologist | | | | | At | Signature | + +-------+ + + + | Sodium, | 136 | 132 - 143 | EXTERNAL | | | External | | | LAB | | + +-------+ + + + + + | Resulting Agency Comment | + + | [facility] | + + + +---------+ + + | Performing | Address | City/State/Zipcode | Phone Number | | Organization | | | | + +---------+ + + | EXTERNAL LAB | | | | + +---------+ + + External Lab: eGFR (05/12/2014) + +-------+ + + + | Component | Value | Ref Range | Performed | Pathologist | | | | | At | Signature | + +-------+ + + + | eGFR, | 112 | 60 | EXTERNAL | | | External | | | LAB | | + +-------+ + + + + + | Specimen | + + | Blood specimen | | (specimen) | + + + + | Resulting Agency Comment | + + | [facility] | + + + +---------+ + + | Performing | Address | City/State/Zipcode | Phone Number | | Organization | | | | + +---------+ + + | EXTERNAL LAB | | | | + +---------+ + + External Lab: Creatinine (05/12/2014) + +-------+ + + + | Component | Value | Ref Range | Performed | Pathologist | | | | | At | Signature | + +-------+ + + + | Creatinine, | 0.84 | 0.6 - 1.35 | EXTERNAL | | | External | | | LAB | | + +-------+ + + + + + | Specimen | + + | Blood specimen | | (specimen) | + + + + | Resulting Agency Comment | + + | [facility] | + + + +---------+ + + | Performing | Address | City/State/Zipcode | Phone Number | | Organization | | | | + +---------+ + + | EXTERNAL LAB | | | | + +---------+ + + Sedimentation Rate (05/12/2014) + +-------+ + + + | Component | Value | Ref Range | Performed | Pathologist | | | | | At | Signature | + +-------+ + + + | ESR | 13 | 0 - 15 mm/hr | [facility] | | | | | | [facility] | | | | | | MEDICAL | | | | | | CENTER - | | | | | | LABORATORY | | + +-------+ + + + + + | Specimen | + + | Blood specimen | | (specimen) | + + + + + + + | Performing | Address | City/State/Zipcode | Phone Number | | Organization | | | | + + + + + | [facility] | [address] | [place] | | | [facility] | | [address] | | | - LABORATORY | | | | + + + + + Trichrome Stain (05/12/2014) + + + + + + | Component | Value | Ref Range | Performed | Pathologist | | | | | At | Signature | + + + + + + | Trichrome | None seen | | | | | Stain | | | | | + + + + + + + + | Specimen | + + | Stool specimen | | (specimen) | + + Giardia Ag, EIA, Stool (05/12/2014) + + + + + + | Component | Value | Ref Range | Performed | Pathologist | | | | | At | Signature | + + + + + + | Giardia | Negative | Negative | | | | Antigen, | | | | | | Stool | | | | | + + + + + + + + | Specimen | + + | Stool specimen | | (specimen) - Stool | + + Culture, Stool Result (05/12/2014) + + + + + + | Component | Value | Ref Range | Performed | Pathologist | | | | | At | Signature | + + + + + + | Final | Comment: many normal | | | | | Result | enteric tre isolated. | | | | | | Negative for Shiga toxin | | | | | | 1 and Shiga toxin 2. No | | | | | | Salmonella, Shigella, | | | | | | Campylobacter or | | | | | | Yersinia isolated. | | | | + + + + + + + + | Specimen | + + | Stool specimen | | (specimen) - Stool | + + C. Difficile Toxin, Antibody (05/12/2014) + + + + + + | Component | Value | Ref Range | Performed | Pathologist | | | | | At | Signature | + + + + + + | C DIFFICILE | Negative | | [facility] | | | [facility] | | | [facility] | | | | | | MEDICAL | | | | | | CENTER - | | | | | | LABORATORY | | + + + + + + + + | Specimen | + + | Blood specimen | | (specimen) | + + + + + + + | Performing | Address | City/State/Zipcode | Phone Number | | Organization | | | | + + + + + | [facility] | [address] | [place] | | | [facility] | | [address] | | | - LABORATORY | | | | + + + + + Fecal leukocytes (05/12/2014) + + + + + + | Component | Value | Ref Range | Performed | Pathologist | | | | | At | Signature | + + + + + + | WBC Stool | None Seen | | | | + + + + + + + + | Specimen | + + | Stool specimen | | (specimen) - Stool | + + documented in this encounter Visit Diagnoses Not on filedocumented in this encounter"
--- OUTSIDE RECORDS SUMMARY | ~2019-04-22 | XMS | Encounter Summary ---
Demographics + + + | Address | [address] | | | [place] [address] | + + + | Home Phone | | + + + | Preferred Language | Unknown | + + + | Marital Status | Single | + + + | Druze Affiliation | Unknown | + + + | Race | Unknown | + + + | Ethnic Group | Unknown | + + + Author + + + | Author | [facility] | | | and [place] | + + + | Organization | [facility] | | | and [place] | [...] Team Providers + +------+ + | Care Auto Clutch Specialist Name | Role | Phone | + [...] | [address] [place] | [place] [place] [address] | | | | | [address] [place], [place] | [place], [place] | | | | | [address] | [address] | | | | | [phone] | | | +--------+ + + + [...] | | | [facility], | | | [facility] | | | Qual | | | [...] [place] | | | [facility] | | [address] | | | - LABORATORY | | [...] - 1.03 | EXTERNAL | | | [place], | | | LAB | | | [...] + | [facility] | [address] | [place] | | | [facility] | | [address] | | | - LABORATORY | | [...] [place] | | | [facility] | | [address] | | | - LABORATORY | | [...] [facility] | | | [facility] | | [address] | | | - LABORATORY | | [...]
--- OUTSIDE RECORDS SUMMARY | ~2019-04-22 | XMS | Encounter Summary ---
Demographics + + + | Address | [address] | | | [place] [address] | + + + | Home Phone | | + + + | Preferred Language | Unknown | + + + | Marital Status | Single | + + + | Samaritan Affiliation | Unknown | + + + | Race | Unknown | + + + | Ethnic Group | Unknown | + + + Author + + + | Author | [facility] | | | and [place] | + + + | Organization | [facility] | | | and [...] Team Providers + +------+ + | Care Hassock Maker Name | Role | Phone | + +------+ + PCP | Unavailable | + +------+ + Encounter Details +--------+ + + + + | Date | Type | Department | Care Team | Description | +--------+ + + + + | 01/31/ | [facility] | [facility] | Ankur Byrd MD | | | 2006 | Encounter | MED CTR XRAY [address] | [address] [facility] | | | | | [place] | [place], [place] | | | | | [place] [address] | [address] | | | | | [phone] | | | +--------+ + + + [...]
--- OUTSIDE RECORDS SUMMARY | ~2019-04-22 | XMS | Clinical Summary ---
Demographics + + + | Address | [address] | | | [place] [address] | + + + | Home Phone | | + + + | Preferred Language | Unknown | + + + | Marital Status | Single | + + + | Judaism Affiliation | Unknown | + + + | Race | Unknown | + + + | Ethnic Group | Unknown | + + + Author + + + | Author | [facility] | | | and [place] | + + + | Organization | [facility] | | | and [place] | + + + | Address | Unknown | + + + | Phone | Unavailable | + + + Support + + +---------+ + | Name | Relationship | Address | Phone | + + +---------+ + | Jess Alonso | ECON | Unknown | | + + +---------+ + | Royer Azevedo | ECON | Unknown | | + + +---------+ + Care Team Providers + +------+ + | Care Dry House Tender Name | Role | Phone | + +------+ + | Tono Salinas | PCP | | + +------+ + Allergies + + + + + + | Active Allergy | Reactions | Severity | Noted | Comments | | | | | Date | | + + + + + + | Citalopram | Other (See Comments) | | | Sedation | + + + + + + | Valproic Acid | Shortness Of Breath | High | 01/26/20 | | | | | | 15 | | + + + + + + Medications + + + +---------+------+------+-------+ | Medication | Sig | Dispensed | Refills | Star | End | Statu | | | | | | t | Date | s | | | | | | Date | | | + + + +---------+------+------+-------+ | omeprazole | Take 80 mg by mouth | | 0 | | | Activ | | (PRILOSEC) 40 MG | every morning | | | | | e | | capsule | (before breakfast). | | | | | | + + + +---------+------+------+-------+ | fluoxetine | Take 40 mg by mouth | | 0 | | | Activ | | (PROZAC) 40 MG | Daily. | | | | | e | | capsule | | | | | | | + + + +---------+------+------+-------+ | potassium chloride | Take 10 mEq by mouth | | 0 | | | Activ | | SA (JOCE TOLEDO) | 2 times daily. | | | | | e | | 10 MEQ tablet | | | | | | | + + + +---------+------+------+-------+ | cloNIDine | Take 0.3 mg by mouth | | 0 | | | Activ | | (CATAPRES) 0.3 MG | Daily. | | | | | e | | tablet | | | | | | | + + + +---------+------+------+-------+ | buPROPion | Take 100 mg by mouth | | 0 | | | Activ | | (WELLBUTRIN) 100 mg | Daily. | | | | | e | | tablet | | | | | | | + + + +---------+------+------+-------+ | Calcium | Take by mouth. | | 0 | | | Activ | | Carbonate-Vitamin D | | | | | | e | | (CALCIUM + D PO) | | | | | | | + + + +---------+------+------+-------+ | ondansetron | Take 1 tablet by | 2 | 0 | 10/0 | | Activ | | (ZOFRAN) 4 mg tablet | mouth See Admin | tablet | | 6/20 | | e | | | Instructions. If | | | 15 | | | | | nausea with prep. | | | | | | | | Stop prep, take 1 | | | | | | | | tab by mouth,wait 30 | | | | | | | | min, restart prep | | | | | | | | may repeat | | | | | | + + + +---------+------+------+-------+ Active Problems + + + | Problem | Noted Date | + + + | Rectal bleeding | 02/02/2015 | + + + | Abdominal pain, generalized | 02/02/2015 | + + + | Diarrhea | 02/02/2015 | + + + | Celiac sprue | 02/02/2015 | + + + | Tobacco use disorder | 02/02/2015 | + + + | Panic disorder | 02/02/2015 | + + + | EPISTAXIS | 08/16/2010 | + + + Family History + + +------+ + | Medical History | Relation | Name | Comments | + + +------+ + | Alcohol abuse | Father | | | + + +------+ + | Cancer | Mother | | uterine | + + +------+ + | Diabetes | Mother | | | + + +------+ + + +------+--------+ + | Relation | Name | Status | Comments | + +------+--------+ + | Father | | Alive | | + +------+--------+ + | Mother | | Alive | | + +------+--------+ + Social History + + + +--------+------+ [...] recent travel history available. | + + Last Filed Vital Signs + + + [...] | | + + + + + Plan of Treatment + + + + + | Health Maintenance | Due Date | Last Done | Comments | + + + + + | Vaccine: | | | | | Dtap/Tdap/Td (1 - | 1 | | | | Tdap) | | | | + + + + + | Vaccine: Influenza | | | | | (#1) | 9 | | | + + + + + Results Not on filefrom Last 3 Months Insurance + +--------+ +--------+ +---------+--------+ | Payer | Benefi | Subscriber | Effect | Phone | Address | Type | | | t Plan | ID | millicent | | | | | | / | | Dates | | | | | | Group | | | | | | + +--------+ +--------+ +---------+--------+ | [place] | MEDICA | [id number] | | [phone] | | Medica | | | ID | | 016-Pr | 2 | | id | | | [place] | | esent | | | | + +--------+ +--------+ +---------+--------+ + +--------+ +--------+ + + | Guarantor Name | Accoun | Relation to | Date | Phone | Billing Address | | | t Type | Patient | of | | | | | | | | | | + +--------+ +--------+ + + | Tonio Crowder | Person | Self [birth year] | [address] [employer] [employer] | | | al/Fam | | 1991 | [phone] | [place] [address] | | | delmy | | | 0 (Home) | | + +--------+ +--------+ + + Advance Directives + + + + + | Type | Date Recorded | Patient | Explanation | | | | Clinical Nursing Professor | | + + + + + | Power of | | | | | Accounting Recruiter | | | | + + + + + | Advance | | | | | Directive | | | | + + + + +
--- OUTSIDE RECORDS SUMMARY | ~2019-04-22 | XMS | Encounter Summary ---
Demographics + + + | Address | [address] | | | [place] [address] | + + + | Home Phone | | + + + | Preferred Language | Unknown | + + + | Marital Status | Single | + + + | Adventist Affiliation | Unknown | + + + | Race | Unknown | + + + | Ethnic Group | Unknown | + + + Author + + + | Author | [facility] | | | and Rajana | + + + | Organization | [facility] | | | and Rajana [...] Team Providers + +------+ + | Care Manager Purchasing Name | Role | Phone | + +------+ + | Tono Salinas | PCP | | + +------+ + Encounter Details +--------+ + + + + | Date | Type | Department | Care Team | Description | +--------+ + + + + | 10/18/ | Abstract | [facility] [place] | [facility], | | | 2014 | | GASTROENTEROLOGY | Sarah[facility]OB kathleen [address] | | | | | [address] [place] | [place], [address] | | | | | [address] [place], [place] | [place], [place] | | | | | [address] | [address] | | | | | [phone] | | | +--------+ + + + [...] +--------+ + + + | EXTERNAL LAB: VIANCA | Routin | 09/10/2014 | | Results for this | | | e | | | procedure are in the | | | | | | results section. | + +--------+ + + + | EXTERNAL LAB: | Routin | 09/10/2014 | | Results for this | | GLUCOSE | e | | | procedure are in the | | | | | | results section. | + +--------+ + + + | EXTERNAL LAB: ALT | Routin | 09/10/2014 | | Results for this | | | e | | | procedure are in the | | | | | | results section. | + +--------+ + + + | EXTERNAL LAB: AST | Routin | 09/10/2014 | | Results for this | | | e | | | procedure are in the | | | | | | results section. | + +--------+ + + + | EXTERNAL LAB: | Routin | 09/10/2014 | | Results for this | | ALKALINE PHOSPHATASE | e | | | procedure are in the | | | | | | results section. | + +--------+ + + + | EXTERNAL LAB: | Routin | 09/10/2014 | | Results for this | | ALBUMIN | e | | | procedure are in the | | | | | | results section. | + +--------+ + + + | EXTERNAL LAB: | Routin | 09/10/2014 | | Results for this | | PROTEIN, TOTAL | e | | | procedure are in the | | | | | | results section. | + +--------+ + + + | EXTERNAL LAB: | Routin | 09/10/2014 | | Results for this | | CALCIUM | e | | | procedure are in the | | | | | | results section. | + +--------+ + + + | EXTERNAL LAB: CARBON | Routin | 09/10/2014 | | Results for this | | DIOXIDE | e | | | procedure are in the | | | | | | results section. | + +--------+ + + + | EXTERNAL LAB: | Routin | 09/10/2014 | | Results for this | | CHLORIDE | e | | | procedure are in the | | | | | | results section. | + +--------+ + + + | EXTERNAL LAB: | Routin | 09/10/2014 | | Results for this | | POTASSIUM | e | | | procedure are in the | | | | | | results section. | + +--------+ + + + | EXTERNAL LAB: SODIUM | Routin | 09/10/2014 | | Results for this | | | e | | | procedure are in the | | | | | | results section. | + +--------+ + + + | EXTERNAL LAB: CBC | Routin | 09/10/2014 | | Results for this | | | e | | | procedure are in the | | | | | | results section. | + +--------+ + + + | EXTERNAL LAB: EGFR | Routin | 09/10/2014 | | Results for this | | | e | | | procedure are in the | | | | | | results section. | + +--------+ + + + | EXTERNAL LAB: | Routin | 09/10/2014 | | Results for this | | CREATININE | e | | | procedure are in the | | | | | | results section. | + +--------+ + + + | CBC WITH | Routin | 09/10/2014 | | Results for this | | DIFFERENTIAL | e | | | procedure are in the | | | | | | results section. | + +--------+ + + + | COMPREHENSIVE | Routin | 09/10/2014 | | Results for this | | METABOLIC PANEL | e | | | procedure are in the | | | | | | results section. | + +--------+ + + + | TRICHOMONAS | Routin | 05/16/2014 | | Results for this | | VAGINALIS, TMA, PAP | e | | | procedure are in the | | | | | | results section. | + +--------+ + + + | GIARDIA / | Routin | 05/16/2014 | | Results for this | | CRYPTOSPORIDUM | e | | | procedure are in the | | ANTIGENS, DFA | | | | results section. | + +--------+ + + + | HB TERM HC TTG AB., | Routin | 05/14/2014 | | Results for this | | IGG, IMMUNOASSAY | e | | | procedure are in the | | | | | | results section. | + +--------+ + + + | HB TERM HC TTG AB. | Routin | 05/14/2014 | | Results for this | | IGA IMMUNOASSAY | e | | | procedure are in the | | | | | | results section. | + +--------+ + + + | ENDOMYSIAL AB, IGA | Routin | 05/14/2014 | | Results for this | | | e | | | procedure are in the | | | | | | results section. | + +--------+ + + + documented in this encounter Results External Lab: VIANCA (09/10/2014) + +-------+ + + + | Component | Value | Ref Range | Performed | Pathologist | | | | | At | Signature | + +-------+ + + + | VIANCA, | 8 | 7 - 23 | EXTERNAL | | | External | | | LAB | | + +-------+ + + + + + | Resulting Agency Comment | + + | [facility] | + + + +---------+ + + | Performing | Address | City/State/Zipcode | Phone Number | | Organization | | | | + +---------+ + + | EXTERNAL LAB | | | | + +---------+ + + External Lab: Glucose (09/10/2014) + +---------+ + + + | Component | Value | Ref Range | Performed | Pathologist | | | | | At | Signature | + +---------+ + + + | Glucose, | 116 (A) | 70 - 100 | EXTERNAL | | | External | | | LAB | | + +---------+ + + + + + | Resulting Agency Comment | + + | [facility] | + + + +---------+ + + | Performing | Address | City/State/Zipcode | Phone Number | | Organization | | | | + +---------+ + + | EXTERNAL LAB | | | | + +---------+ + + External Lab: ALT (09/10/2014) + +-------+ + + + | Component | Value | Ref Range | Performed | Pathologist | | | | | At | Signature | + +-------+ + + + | ALT, | 42 | 10 - 60 | EXTERNAL | | | External | | | LAB | | + +-------+ + + + + + | Resulting Agency Comment | + + | [facility] | + + + +---------+ + + | Performing | Address | City/State/Zipcode | Phone Number | | Organization | | | | + +---------+ + + | EXTERNAL LAB | | | | + +---------+ + + External Lab: AST (09/10/2014) + +-------+ + + + | Component | Value | Ref Range | Performed | Pathologist | | | | | At | Signature | + +-------+ + + + | AST, | 35 | 5 - 150 | EXTERNAL | | | External | | | LAB | | + +-------+ + + + + + | Resulting Agency Comment | + + | [facility] | + + + +---------+ + + | Performing | Address | City/State/Zipcode | Phone Number | | Organization | | | | + +---------+ + + | EXTERNAL LAB | | | | + +---------+ + + External Lab: Alkaline Phosphatase (09/10/2014) + +--------+ + + + | Component | Value | Ref Range | Performed | Pathologist | | | | | At | Signature | + +--------+ + + + | ALP, | 94 (A) | 32 - 92 | EXTERNAL | | | External | | | LAB | | + +--------+ + + + + + | Resulting Agency Comment | + + | [facility] | + + + +---------+ + + | Performing | Address | City/State/Zipcode | Phone Number | | Organization | | | | + +---------+ + + | EXTERNAL LAB | | | | + +---------+ + + External Lab: Albumin (09/10/2014) + +-------+ + + + | Component | Value | Ref Range | Performed | Pathologist | | | | | At | Signature | + +-------+ + + + | Albumin, | 4.3 | 3.2 - 5.5 | EXTERNAL | | | External | | | LAB | | + +-------+ + + + + + | Resulting Agency Comment | + + | [facility] | + + + +---------+ + + | Performing | Address | City/State/Zipcode | Phone Number | | Organization | | | | + +---------+ + + | EXTERNAL LAB | | | | + +---------+ + + External Lab: Protein, Total (09/10/2014) + +-------+ + + + | Component | Value | Ref Range | Performed | Pathologist | | | | | At | Signature | + +-------+ + + + | Protein, | 7.1 | 6 - 8 | EXTERNAL | | | Total, | | | LAB | | | External | | | | | + +-------+ + + + + + | Resulting Agency Comment | + + | [facility] | + + + +---------+ + + | Performing | Address | City/State/Zipcode | Phone Number | | Organization | | | | + +---------+ + + | EXTERNAL LAB | | | | + +---------+ + + External Lab: Calcium (09/10/2014) + +-------+ + + + | Component | Value | Ref Range | Performed | Pathologist | | | | | At | Signature | + +-------+ + + + | Calcium, | 9.4 | 8.3 - 10.5 | EXTERNAL | | | External | | | LAB | | + +-------+ + + + + + | Resulting Agency Comment | + + | [facility] | + + + +---------+ + + | Performing | Address | City/State/Zipcode | Phone Number | | Organization | | | | + +---------+ + + | EXTERNAL LAB | | | | + +---------+ + + External Lab: Carbon Dioxide (09/10/2014) + +-------+ + + + | Component | Value | Ref Range | Performed | Pathologist | | | | | At | Signature | + +-------+ + + + | Carbon | 25 | 22 - 32 | EXTERNAL | | | Dioxide, | | | LAB | | | External | | | | | + +-------+ + + + + + | Resulting Agency Comment | + + | [facility] | + + + +---------+ + + | Performing | Address | City/State/Zipcode | Phone Number | | Organization | | | | + +---------+ + + | EXTERNAL LAB | | | | + +---------+ + + External Lab: Chloride (09/10/2014) + +-------+ + + + | Component | Value | Ref Range | Performed | Pathologist | | | | | At | Signature | + +-------+ + + + | Chloride, | 102 | 100 - 110 | EXTERNAL | | | External | | | LAB | | + +-------+ + + + + + | Resulting Agency Comment | + + | [facility] | + + + +---------+ + + | Performing | Address | City/State/Zipcode | Phone Number | | Organization | | | | + +---------+ + + | EXTERNAL LAB | | | | + +---------+ + + External Lab: Potassium (09/10/2014) + +---------+ + + + | Component | Value | Ref Range | Performed | Pathologist | | | | | At | Signature | + +---------+ + + + | Potassium, | 3.4 (A) | 3.5 - 5.1 | EXTERNAL | | | External | | | LAB | | + +---------+ + + + + + | Resulting Agency Comment | + + | [facility] | + + + +---------+ + + | Performing | Address | City/State/Zipcode | Phone Number | | Organization | | | | + +---------+ + + | EXTERNAL LAB | | | | + +---------+ + + External Lab: Sodium (09/10/2014) + +---------+ + + + | Component | Value | Ref Range | Performed | Pathologist | | | | | At | Signature | + +---------+ + + + | Sodium, | 134 (A) | 135 - 145 | EXTERNAL | | | External | | | LAB | | + +---------+ + + + + + | Resulting Agency Comment | + + | [facility] | + + + +---------+ + + | Performing | Address | City/State/Zipcode | Phone Number | | Organization | | | | + +---------+ + + | EXTERNAL LAB | | | | + +---------+ + + External Lab: ABE (09/10/2014) + +-------+ + + + | Component | Value | Ref Range | Performed | Pathologist | | | | | At | Signature | + +-------+ + + + | WBC, | 9.4 | 4.5 - 10 | EXTERNAL | | | External | | | LAB | | + +-------+ + + + | HGB, | 16.0 | 11.8 - 16 | EXTERNAL | | | External | | | LAB | | + +-------+ + + + | HCT, | 46.3 | 38.9 - 51.5 | EXTERNAL | | | External | | | LAB | | + +-------+ + + + | PLT, | 254 | 150 - 400 | EXTERNAL | | | External | | | LAB | | + +-------+ + + + | Neutrophils | 63.3 | | EXTERNAL | | | %, | | | LAB | | | External | | | | | + +-------+ + + + | Lymphocytes | 23.8 | | EXTERNAL | | | %, | | | LAB | | | External | | | | | + +-------+ + + + | Monocytes | 10.3 | | EXTERNAL | | | %, External | | | LAB | | + +-------+ + + + | Eosinophils | 2.2 | | EXTERNAL | | | %, | | | LAB | | | External | | | | | + +-------+ + + + | Neutrophils | 6.0 | 2 - 7.3 | EXTERNAL | | | , Absolute, | | | LAB | | | External | | | | | + +-------+ + + + | Lymphocytes | 2.2 | 0.5 - 3.3 | EXTERNAL | | | , Absolute, | | | LAB | | | External | | | | | + +-------+ + + + | Monocytes, | 1.0 | 0.2 - 1 | EXTERNAL | | | Absolute, | | | LAB | | | External | | | | | + +-------+ + + + | Eosinophils | 0.2 | 0 - 0.4 | EXTERNAL | | | , Absolute | | | LAB | | + +-------+ + + + | Basophils, | 0 | 0 - 0.1 | EXTERNAL | | | Absolute | | | LAB | | + +-------+ + + + | RBC, | 5.26 | 4.4 - 6 | EXTERNAL | | | External | | | LAB | | + +-------+ + + + | MCV, | 88 | 80 - 100 | EXTERNAL | | | External | | | LAB | | + +-------+ + + + | RDW, | 13 | 9.6 - 14.6 | EXTERNAL | | | External | | | LAB | | + +-------+ + + + + + | Resulting Agency Comment | + + | [facility] | + + + +---------+ + + | Performing | Address | City/State/Zipcode | Phone Number | | Organization | | | | + +---------+ + + | EXTERNAL LAB | | | | + +---------+ + + External Lab: eGFR (09/10/2014) + +-------+ + + + | Component | Value | Ref Range | Performed | Pathologist | | | | | At | Signature | + +-------+ + + + | eGFR, | >60 | 60 - 999,999 | EXTERNAL | | | External | | | LAB | | + +-------+ + + + + + | Specimen | + + | Blood specimen | | (specimen) | + + + + | Resulting Agency Comment | + + | [facility] | + + + +---------+ + + | Performing | Address | City/State/Zipcode | Phone Number | | Organization | | | | + +---------+ + + | EXTERNAL LAB | | | | + +---------+ + + External Lab: Creatinine (09/10/2014) + +-------+ + + + | Component | Value | Ref Range | Performed | Pathologist | | | | | At | Signature | + +-------+ + + + | Creatinine, | 1.1 | 0.7 - 1.3 | EXTERNAL | | | External | | | LAB | | + +-------+ + + + + + | Specimen | + + | Blood specimen | | (specimen) | + + + + | Resulting Agency Comment | + + | [facility] | + + + +---------+ + + | Performing | Address | City/State/Zipcode | Phone Number | | Organization | | | | + +---------+ + + | EXTERNAL LAB | | | | + +---------+ + + Comprehensive Metabolic Panel (09/10/2014) + +-------+ + + + | Component | Value | Ref Range | Performed | Pathologist | | | | | At | Signature | + +-------+ + + + | Anion Gap | 10 | mmol/L | [facility] | | | | | | [facility] | | | | | | [facility] | | | | | [facility] - | | | | | | LABORATORY | | + +-------+ + + + | BUN/Creatin | 7.3 | | [facility] | | | ine Ratio | | | [facility] | | | | | | [facility] | | | | | | [facility] - | | | | | | LABORATORY | | + +-------+ + + + | Osmolality | 277.0 | | [facility] | | | Calc | | | [facility] | | | | | | [facility] | | | | | | [facility] - | | | | | | LABORATORY | | + +-------+ + + + | Globulin | 2.8 | | [facility] | | | | | | [facility] | | [facility] | | | [facility] | | | | | | [facility] - | | | | | | LABORATORY | | + +-------+ + + + | Albumin/Eva | 1.54 | | [facility] | | | bulin Ratio [...] + | [facility] | [address] | [place] | [phone] | | [facility] | | [address] | | | - LABORATORY | | | | + + + + + CBC with Differential (09/10/2014) + +-------+ + + + | Component | Value | Ref Range | Performed | Pathologist | | | | | At | Signature | + +-------+ + + + | MCH | 30.5 | pg | | | + +-------+ + + + | MCHC | 34.6 | % | | | + +-------+ + + + | % Basophils | 0.4 | % | | | + +-------+ + + + | ESR | 8 | mm/hr | | | + +-------+ + + + + + | Specimen | + + | Blood specimen | | (specimen) | + + Trichomonas Vaginalis, TMA, Pap (05/16/2014) + + + + + + | Component | Value | Ref Range | Performed | Pathologist | | | | | At | Signature | + + + + + + | Trichomonas | Non Seen | | | | | vaginosis | | | | | + + + + + + + + | Specimen | + + | Cytologic material | | (specimen) | + + Giardia / Cryptosporidum antigens, DFA (05/16/2014) + + + + + + | Component | Value | Ref Range | Performed | Pathologist | | | | | At | Signature | + + + + + + | Giardia Ab | Negative | | | | + + + + + + + + | Specimen | + + | Stool specimen | | (specimen) | + + HB TERM HC TTG AB., IGG, IMMUNOASSAY (05/14/2014) + +-------+ + + + | Component | Value | Ref Range | Performed | Pathologist | | | | | At | Signature | + +-------+ + + + | Tissue | 1.1 | 7 | | | | Transglutam | | | | | | inase IgG | | | | | + +-------+ + + + + + | Specimen | + + | | + + HB TERM HC TTG AB. IGA IMMUNOASSAY (05/14/2014) + +---------+ + + + | Component | Value | Ref Range | Performed | Pathologist | | | | | At | Signature | + +---------+ + + + | Tissue | 128 (A) | 7 | | | | Transglutam | | | | | | inase IgA | | | | | + +---------+ + + + + + | Specimen | + + | | + + Endomysial Ab, IgA (05/14/2014) + +-------+ + + + | Component | Value | Ref Range | Performed | Pathologist | | | | | At | Signature | + +-------+ + + + | Endomysial | 1:80 | | [facility] | | | Ab, IgA, | | | [facility] | | | Quant | | | MEDICAL | | | [...] [place] | | | [facility] | | [id number] | | | - LABORATORY | | | | + + + + + documented in this encounter Visit Diagnoses Not on filedocumented in this encounter"
--- OUTSIDE RECORDS SUMMARY | ~2019-04-22 | XMS | Encounter Summary ---
Demographics + + + | Address | [address] | | | [place] [address] | + + + | Home Phone | | + + + | Preferred Language | Unknown | + + + | Marital Status | Single | + + + | Pentecostal Affiliation | Unknown | + + + | Race | Unknown | + + + | Ethnic Group | Unknown | + + + Author + + + | Author | [facility] | | | and Rajana | + + + | Organization | [facility] | | | and Rajana [...] Team Providers + +------+ + | Care Grad Intern Name | Role | Phone | + +------+ + PCP | Unavailable | + +------+ + Encounter Details +--------+ + + + + | Date | Type | Department | Care Team | Description | +--------+ + + + + | 01/02/ | Abstract | [facility] | [facility] | | | 2011 | | Conversion Location | SR | | | | | [phone] | | | +--------+ + + + [...]
--- OUTSIDE RECORDS SUMMARY | ~2019-04-22 | XMS | Encounter Summary ---
Demographics + + + | Address | [address] | | | [place] [address] | + + + | Home Phone | | + + + | Preferred Language | Unknown | + + + | Marital Status | Single | + + + | Hoahaoism Affiliation | Unknown | + + + | Race | Unknown | + + + | Ethnic Group | Unknown | + + + Author + + + | Author | [facility] | | | and [place] | + + + | Organization | [facility] | | | and [place] [...] Team Providers + +------+ + | Care Railway Signalling Engineer Name | Role | Phone | + +------+ + | Tono Salinas | PCP | | + +------+ + Encounter Details +--------+ + + + + | Date | Type | Department | Care Team | Description | +--------+ + + + + | 10/18/ | Abstract | [facility] [place] | [facility], | | | 2014 | | GASTROENTEROLOGY | Sarah[address]OB kathleen [address] | | | | | [address] [place] | [place], [address] | | | | | [address] [place], [place] | [place], [place] | | | | | [address] | [address] | | | | | [phone] | | | +--------+ + + + [...] [address] | [place] | [phone] | | [facility] | | [address] | | | - LABORATORY | | [...] [place] Acevedo | | | [facility] | | [address] | | | - LABORATORY | | | | + + + + + documented in this encounter Visit Diagnoses Not on filedocumented in this encounter"
--- OUTSIDE RECORDS SUMMARY | ~2019-04-22 | XMS | Encounter Summary ---
Demographics + + + | Address | [address] | | | [place] [address] | + + + | Home Phone | | + + + | Preferred Language | Unknown | + + + | Marital Status | Single | + + + | Jainism Affiliation | Unknown | + + + | Race | Unknown | + + + | Ethnic Group | Unknown | + + + Author + + + | Author | [facility] | | | and Rajana | + + + | Organization | [facility] | | | and [...] Team Providers + +------+ + | Care Disk Operator Name | Role | Phone | + +------+ + PCP | Unavailable | + +------+ + Encounter Details +--------+ + + + + | Date | Type | Department | Care Team | Description | +--------+ + + + + | 01/31/ | [facility] | [facility] | Ankur Byrd MD | | | 2006 | Encounter | MED CTR XRAY [address] | [address] [facility] | | | | | [place] | [place], [place] | | | | | [place] [address] | [address] | | | | | [phone] | | | +--------+ + + + [...]
--- OUTSIDE RECORDS SUMMARY | ~2019-04-22 | XMS | Encounter Summary ---
Demographics + + + | Address | [address] | | | [place] [address] | + + + | Home Phone | | + + + | Preferred Language | Unknown | + + + | Marital Status | Single | + + + | Confucianist Affiliation | Unknown | + + + | Race | Unknown | + + + | Ethnic Group | Unknown | + + + Author + + + | Author | [facility] | | | and Rajana | + + + | Organization | [facility] | | | and Rajana [...] Team Providers + +------+ + | Care Director Of Public Relations Name | Role | Phone | + +------+ + PCP | Unavailable | + +------+ + Encounter Details +--------+ + + + + | Date | Type | Department | Care Team | Description | +--------+ + + + + | 08/01/ | [facility] | [facility] | Vonda Bustillos | | | 2009 | Encounter | MED CTR EMERGENCY | Noami Ambriz MD [address] | | | | | CENTER [address] | [facility] | | | | | [address] [address] | [place] [address] | | | | | [address] | [phone] | | | | | [phone] | | | +--------+ + + + [...]
--- OUTSIDE RECORDS SUMMARY | ~2019-04-22 | XMS | Clinical Summary ---
Demographics + + + | Address | [address] | | | [place] [address] | + + + | Home Phone | | + + + | Preferred Language | Unknown | + + + | Marital Status | Single | + + + | Evangelical Affiliation | Unknown | + + + | Race | Unknown | + + + | Ethnic Group | Unknown | + + + Author + + + | Author | [facility] | | | and Rajana | + + + | Organization | [facility] | | | and Rajana [...] Team Providers + +------+ + | Care Electronics Tech Name | Role | Phone | + [...] +---------+--------+ | MEDICAID [place] | MEDICA | [id number] | | [phone] | | Medica | [...] + +--------+ +--------+ + + | Tonio Crowedr | Person | Self | [birth year] | [address] [employer] | | | al/Fam | | 1991 | [phone] | [place] [address] | | | delmy | | | 0 (Home) | | + +--------+ +--------+ + + Advance Directives + + + + + | Type | Date Recorded | Patient | Explanation | | | | Bottle Blower | | + + + + + | Power of | | | | | Tape Cutting Machine Operator | | | | + + + + + | Advance | | | | | Directive | | | | + + + + +
--- OUTSIDE RECORDS SUMMARY | ~2019-04-22 | XMS | Encounter Summary ---
Demographics + + + | Address | [address] | | | [place] [address] | + + + | Home Phone [...] | Author | [facility] | | | and Rajana | + + + | Organization | [facility] | | | and Rajana [...] Team Providers + +------+ + | Care Shearer Screen Measurer And Trimmer Name | Role | Phone | + [...] + + | 02/01/ | Telephone | [facility] | [facility], | Other (egd/colon) | | 2014 | | GASTROENTEROLOGY | ROB Smith [address] | | | | | [address] [place] | [place], [place] [address] | | | | | [address] [place], [place] | [place], [place] | | | | | [address] | [address] | | | | | [phone] | | | +--------+ + + + [...]
--- OUTSIDE RECORDS SUMMARY | ~2019-04-22 | XMS | Encounter Summary ---
Demographics + + + | Address | [address] | | | [place] [address] | + + + | Home Phone | | + + + | Preferred Language | Unknown | + + + | Marital Status | Single | + + + | Scientology Affiliation | Unknown | + + + | Race | Unknown | + + + | Ethnic Group | Unknown | + + + Author + + + | Author | [facility] | | | and Rajana | + + + | Organization | [facility] | | | and Rajana [...] Team Providers + +------+ + | Care Outside Machinist Name | Role | Phone | + [...] | | | | | Abdominal | HELP DESK TECHNICIAN [address] | [place], | | | | | pain, | [place], [place] | [place] [address] | | | | | generalized | [address] [place] | Phone: | | | | | Diarrhea | [place], [place] | [phone] | | | | | Celiac sprue | [address] | Fax: | | | | | Tobacco | Phone: | [phone] | | | | | use disorder | [phone] | | | | | | Procedures | Fax: | | | | | | [place] | [phone] | | | | | | COLONOSCOPY | | | | | | | FLX DX | | | | | | | W/COLLJ SPEC | | | | | | | WHEN PFRMD | | | | | | | [place] | | | | | | | COLONOSCOPY | | | | | | | W/BIOPSY | | | | | | | SINGLE/MULTI | | | | | | | PLE [place] | | | | | | | COLSC FLX | | | | | | | W/RMVL OF | | | | | | | TUMOR POLYP | | | | | | | LESION SNARE | | | | | | | TQ [place] | | | | | | | ESOPHAGOGAST | | | | | | | RODUODENOSCO | | | | | | | PY TRANSORAL | | | | | | | DIAGNOSTIC | | | | | | | [place] EDG | | | | | | [...] | | | | | Pain/vomitin | HELP DESK TECHNICIAN [address] | [address] | | | | | g and | [address] | [address] [place] | | | | | Diarrhea | [place], | [address] [place] | | | | | Procedures | [place] | [place], [place] | | | | | Office Visit | [address] | [address] | | | | | | Phone: | Phone: | | | | | | [phone] | [phone] | | | | | | Fax: | Fax: | | | | | | [phone] | [phone] | +--------+--------+ + + + + Encounter [...] | [address] [place] | [place], [place] [address] | Abdominal pain, | | | | [address] [place], [place] | [place], [place] | generalized; | | | | [address] | [address] | Diarrhea; Celiac | | | | [phone] | | sprue; Tobacco use | | [...] www.eatright.org National Digestive Diseases Information Clearinghouse: www.digestive.niddk.nih.gov 2684-4013 [address] [place] [address]. All [facility] ts reserved. This information [...] Final eGFR, External 09/10/2014 >60 60 - [id number] Final WBC, External 09/10/2014 9.4 4.5 - [...]
--- OUTSIDE RECORDS SUMMARY | ~2019-04-22 | XMS | Encounter Summary ---
Demographics + + + | Address | [address] | | | [place] [address] | + + + | Home Phone | | + + + | Preferred Language | Unknown | + + + | Marital Status | Single | + + + | Yarsanism Affiliation | Unknown | + + + | Race | Unknown | + + + | Ethnic Group | Unknown | + + + Author + + + | Author | [facility] | | | and Rajana | + + + | Organization | [facility] | | | and Rajana [...] Team Providers + +------+ + | Care Transit Police Officer Name | Role | Phone | + [...] | SR | | | | | [phone] | | | +--------+ + + + [...]
--- OUTSIDE RECORDS SUMMARY | ~2019-04-22 | XMS | Encounter Summary ---
Demographics + + + | Address | [address] | | | [place] [address] | + + + | Home Phone | | + + + | Preferred Language | Unknown | + + + | Marital Status | Single | + + + | Amish Affiliation | Unknown | + + + | Race | Unknown | + + + | Ethnic Group | Unknown | + + + Author + + + | Author | [facility] | | | and Rajana | + + + | Organization | [facility] | | | and [...] Team Providers + +------+ + | Care Patent Paralegal Name | Role | Phone | + +------+ + PCP | Unavailable | + +------+ + Encounter Details +--------+ + + + + | Date | Type | Department | Care Team | Description | +--------+ + + + + | 08/01/ | [facility] | [facility] | Vonda Bustillos | | | 2009 | Encounter | MED CTR EMERGENCY | Naomi Ambriz MD [address] | | | | | CENTER [address] | [facility] | | | | | [address] | [place] [address] | | | | | [address] | [phone] | | | | | [phone] | | | +--------+ + + + [...]
[2019-04-22] MEDS ORDERED: CLEOCIN HCL300 MG PO (15:40)
[2019-04-22] MEDS ORDERED: NORCO 5-325 TA1 EACH PO (15:40)
== END 2019-04-22 15:47 | disposition home or self-care (01) ==
LOC: ED 15:09
DX: L05.01 Pilonidal cyst with abscess (principal); F17.200 Nicotine dependence, unspecified, uncomplicated; Z88.8 Allergy status to other drugs, medicaments and biological substances
CPT/HCPCS: 10080; 99282-25

== ENCOUNTER 2019-05-13 09:45 | Day surgery (SDC) | payer BC ==
[~2019-05-13] VITALS: Ht 182.9 cm; Wt 74.8 kg
[~2019-05-13 09:45] MED LIST changes: +CLEOCIN HCL300 MG PO
--- NOTE | 2019-05-13 12:54 | NUR ---
ASSISTED WITH SADDLE BLOCK WITH BARRELHEAD INSPECTOR
--- NOTE | 2019-05-13 13:47 | NUR ---
05/13/19 1347 Caty Sanders 1340-PATIENT ARRIVED TO PACU ON RA. RR EVEN. PATIENT REACTIVE TO VERBAL STIMULI VERY DROWSY. SLIGHTLY OPENS EYES AND FALLS BACK TO SLEEP. SR 1347-PATIENT SLEEPING REACTIVE TO VERBAL STIMULI SMILES. DENIES PAIN. DROWSY BACK TO SLEEP.
[2019-05-13] MEDS ORDERED: NORCO 10-325 T1 EACH PO (14:06)
[2019-05-13] MEDS ORDERED: TYLENOL325 MG PO (14:08)
--- NOTE | 2019-05-13 14:40 | NUR ---
PT IS BACK TO DS, WAITING FOR TO RETURN TO SEND HIM HOME.
--- NOTE | 2019-05-13 14:59 | NUR ---
PT AND SIGNIFICANT OTHER ARE GIVEN VERBAL DC INSTRUCTIONS. THEY BOTH VERBALIZE UNDERSTANDING. QUESTIONS ARE ASKED AND ANSWERED. PT IS TAKEN TO VEHICLE IN WC. HE IS ABLE TO TRANSFER HIMSELF.
--- NOTE | 2019-05-14 07:21 | OR ---
[facility] [address] [place], [place] [address] Signed DATE OF OPERATION: 05/13/2019 SURGEON: Radha Muir MD PREOPERATIVE DIAGNOSIS: Recurring pilonidal cyst with abscess. POSTOPERATIVE DIAGNOSIS: Recurring pilonidal cyst with abscess. PROCEDURE PERFORMED: Pilonidal cystectomy. ESTIMATED BLOOD LOSS: Minimal. INDICATIONS: Ed is a 28-year-old gentleman who by age 21 had developed a pilonidal cyst. He has had at least twice. 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 He is very familiar with home care and wound packing and so forth. He is also very familiar with pilonidal cyst. At one point, he said it enlarged up to the size of a tennis ball if not larger. He took antibiotics and soaked in Epsom salts and finally broke through and it settled down. In the meantime, he has made arrangements to go establish with his primary care provider, Luis Alberto Kim, who is a nurse practitioner. He was asked to see me with respect to the above. He said he has been better on antibiotics. He comes with his girlfriend. On exam in the office, you can see the traditional three pits in the midline and then I and D site laterally at the 9 o'clock position. No local signs or symptoms of infection in the office. However, it certainly is quite indurated. I explained to Ed pilonidal cyst. However, he is quite aware that we have to excise them completely all the way down to the sacrum and we will allow them to heal in secondarily. It will take at least two months. We did review the expected intraop and postop course along with the risks including, but not limited to bleeding, infection, scarring, change in contour of the skin as well as recurrent pilonidal cyst. He had expressed understanding and wished to proceed. DESCRIPTION OF PROCEDURE: I met with Ed and his girlfriend in our preop area. After reviewing the above our nurse title coordinator had placed a saddle block. After this, he was taken to the operating room and placed in the prone farideh-knife position under monitored anesthesia care. He was given preoperative antibiotics along with subcutaneous heparin following his saddle Electronically Signed By: RADHA MUIR MD 05/14/19 0721 PATIENT NAME: ED CROWDER OPERATIVE REPORT DATE OF : 88 REPORT #: [id number] PHYSICIAN: RADHA MUIR MD PCP: LUIS ALBERTO KIM REPORT IS CONFIDENTIAL AND NOT TO BE RELEASED WITHOUT AUTHORIZATION [facility] [address] [place], [place] [address] Signed block. SCDs were utilized. He was prepped and draped in the usual sterile fashion. We used a #15 blade knife to make an elliptical incision around the pilonidal cyst. We took all the very indurated tissue with the help of the cautery out into healthy subcutaneous adipose tissue. We followed all the way down to the left lateral tip of the coccyx. Amazingly, he had some fluid, it is not pus, right at the bottom of this area. Because of his previous I and D sites in the chronicity of this, it was unbelievably indurated adherent down to the coccyx. It took a few minutes to get it loose with the cautery. We cauterized along that left lateral tip of the coccyx at the base. From what I can tell, there was no osteomyelitis. After this, the wound was irrigated and suctioned out until clear. We passed the specimen off to our pathology department. Local anesthetic was injected in and around the wound cavity. We then packed the wound with saline soaked gauze, covered it with dry gauze and ABD and mesh underwear. Ed was then rotated in the supine position on his hospital bed and taken into recovery room in stable condition. Ed Crowder. Please copies to my office the patient's chart as well as to weight Dada nurse practitioner thanks. Radha Muir MD ALB/MODL /[id number] cc: MD Luis Alberto Singer FNP Copies: RADHA MUIR MD, WADE R FNP ~ Electronically Signed By: RADHA MUIR MD 05/14/19 0721 PATIENT NAME: ED CROWDER OPERATIVE REPORT DATE OF : 88 REPORT #: [id number] PHYSICIAN: RADHA MUIR MD PCP: LUIS ALBERTO KIM REPORT IS CONFIDENTIAL AND NOT TO BE RELEASED WITHOUT AUTHORIZATION
--- NOTE | 2019-05-14 14:50 | PATH ---
[facility] [place] [facility] [address] [place], [place] [address] Signed SPECIMEN(S): A PILONIDAL CYST SPECIMEN SOURCE: A. PILONIDAL CYST CLINICAL HISTORY: Reoccurring pilonidal cyst. FINAL PATHOLOGIC DIAGNOSIS: Pilonidal cyst, excision: - Pilonidal cyst. NAL:smn:C2NR MICROSCOPIC EXAMINATION: Histologic sections of all submitted blocks are examined by light microscopy. These findings, together with the gross examination, support the pathologic diagnosis. GROSS DESCRIPTION: The specimen, labeled "ZM, and A, pilonidal cyst on the requisition," is received in formalin and consists of a 4.2 x 3.3 x 2.2 cm portion of fibrofatty tissue with an attached 2.3 x 1.7 cm rubbery burger wrinkled irregular portion of skin. The surgical margin is marked with blue ink. The cut surfaces demonstrate an underlying 1.5 x 0.6 x 0.1 cm linear tract containing soft patterson material. Otherwise the cut surfaces are mottled patterson-yellow to patterson-red. Sewing Trimmer sections are submitted in cassettes A1 and A2. SS (under the direct supervision of a pathologist) The Gross Description was prepared using a voice recognition system. The report was reviewed for accuracy; however, sound-alike word errors, addition and/or deletions may occur. If there is any question about this report, please contact Client Services. PERFORMING LABORATORY: The technical component was performed by [email or web address], [address] [place] [address] (Design Lead: Sarah Heard MD; CLIA# [id number]). [email or web address] [address] [address] (Design Lead: Bobby Rajan MD; CLIA# [id number]). PATIENT NAME: ED ENCARNACION PATHOLOGY DATE OF : [birth year] REPORT #: [id number] PHYSICIAN: [facility] PATHOLOGY PCP: LUCY KIM REPORT IS CONFIDENTIAL AND NOT TO BE RELEASED WITHOUT AUTHORIZATION [address] [place] [address] Signed Diagnostician: Brissa Hernandez MD Pathologist Electronically Signed 05/14/2019 Copies: ~ PATIENT NAME: ED ENCARNACION PATHOLOGY DATE OF : [birth year] REPORT #: [id number] PHYSICIAN: GENEVIEVE PATHOLOGY PCP: LUCY KIM REPORT IS CONFIDENTIAL AND NOT TO BE RELEASED WITHOUT AUTHORIZATION
== END 2019-05-13 14:45 | disposition home or self-care (01) ==
LOC: OPS 09:45 → DS 09:45
PROVIDERS: Colon & Rectal Surgery
PROC: 0HB8XZZ Excision of Buttock Skin, External Approach (ICD-10-PCS; principal; 2019-05-13 12:00)
DX: L05.01 Pilonidal cyst with abscess (principal); F17.210 Nicotine dependence, cigarettes, uncomplicated; M41.9 Scoliosis, unspecified; Z88.8 Allergy status to other drugs, medicaments and biological substances
CPT/HCPCS: J0690; J1644; J2250; J2704; J7121

== ENCOUNTER 2019-05-20 09:46 | Emergency (ER) | payer BC ==
[~2019-05-20] VITALS: Ht 182.9 cm; Wt 74.8 kg
[~2019-05-20 09:46] MED LIST changes: +NORCO 10-325 T1 EACH PO; +TYLENOL325 MG PO
--- OUTSIDE RECORDS SUMMARY | 2019-05-20 09:48 | XMS ---
PreManage Notification: ED ENCARNACION Security Director Private Music Therapy Agency Events No recent Security Events currently on file CRITERIA MET - [facility] - 2 Visits in 30 Days CARE PROVIDERS SHINE GARCIA Physician 06/23/2018-Current PHONE: [phone] [facility] Current CARE PHONE: [phone] Care Guidelines exist for the following facilities: [facility] ( 07/02/2016 ) Care History Medical/Surgical 12/26/[address] [facility] ED visit: chest pain and SOB. Dx. abdominal pain. Rx.compazine and vicodin. E.D. VISIT COUNT (12 MO.) [address] [facility] TOTAL 4 NOTE: Visits indicate total known visits. ED/UCC VISIT TRACKING (12 MO.) 05/20/2019 09:47 [facility] TYPE: Emergency COMPLAINT: - POST OP PROBLEM 04/22/2019 15:10 [facility] TYPE: Emergency COMPLAINT: - SKIN PROBLEM DIAGNOSES: - Pilonidal cyst with abscess - Nicotine dependence, unspecified, uncomplicated - Allergy status to oth drug/meds/biol subst status 02/10/2019 20:34 [facility] TYPE: Emergency COMPLAINT: - SKIN PROBLEM DIAGNOSES: - Local infection of the skin and subcutaneous tissue, unsp - Nicotine dependence, unspecified, uncomplicated - Pilonidal cyst with abscess - Allergy status to oth drug/meds/biol subst status 06/21/2018 03:25 [facility] TYPE: Emergency COMPLAINT: - DENTAL PROBLEM DIAGNOSES: - Nicotine dependence, unspecified, uncomplicated - Bipolar disorder, unspecified - Allergy status to oth drug/meds/biol subst status - Other epic cupid specialists (current) drug therapy - Other specified disorders of teeth and supporting structures - Anxiety disorder, unspecified - Post-traumatic stress disorder, unspecified INPATIENT VISIT TRACKING (12 MO.) No inpatient visits to display in this time frame [email or web address]
[2019-05-20] MEDS ORDERED: SODIUM CHLORI1000 ML IRRIGATION (10:02)
[2019-05-20] MEDS ORDERED: DULOXETINE HCL30 MG PO (10:02)
[2019-05-20] MEDS ORDERED: IBUPROFEN200 MG PO (10:03)
[2019-05-20] MEDS ORDERED: ONDANSETRON ODT8 MG PO (10:20)
[2019-05-20] MEDS ORDERED: PROMETHAZINE HC25 M1 PO (10:20)
== END 2019-05-20 10:35 | disposition home or self-care (01) ==
LOC: ED 09:46
DX: L05.91 Pilonidal cyst without abscess (principal); F41.9 Anxiety disorder, unspecified; G43.909 Migraine, unspecified, not intractable, without status migrainosus; F31.9 Bipolar disorder, unspecified; F17.200 Nicotine dependence, unspecified, uncomplicated; Z88.8 Allergy status to other drugs, medicaments and biological substances; Z79.899 Other long term (current) drug therapy
CPT/HCPCS: 99283

== ENCOUNTER 2021-07-06 10:56 | Emergency (ER) | payer OTHER, BC ==
[~2021-07-06] VITALS: Ht 182.9 cm; Wt 81.2 kg
[~2021-07-06 10:56] MED LIST changes: +DULOXETINE HCL30 MG PO; +IBUPROFEN200 MG PO; +ONDANSETRON ODT8 MG PO; +PROAIR RESPICL90 MCG; +SODIUM CHLORI1000 ML IRRIGATION
--- NOTE | 2021-07-06 16:55 | EKG ---
[facility] [address] [facility] [place] [address] Signed Normal sinus rhythm Normal ECG When compared with ECG of 22-JUN-2020 11:02, T wave amplitude has decreased in Anterior leads Confirmed by EVIN SANDERS MD ([id number]) on 07/06/2021 4:55:12 PM Electronically Signed By: EVIN SANDERS MD 07/06/21 1655 PATIENT NAME: LEANN ENCARNACIONEMMETT AVILEZ Electrocardiogram DATE OF : 88 PHYSICIAN: EVIN SANDERS MD REPORT #: [id number] REPORT IS CONFIDENTIAL AND NOT TO BE RELEASED WITHOUT AUTHORIZATION
== END 2021-07-06 14:25 | disposition home or self-care (01) ==
LOC: ED 10:56
DX: G43.909 Migraine, unspecified, not intractable, without status migrainosus (principal); R20.0 Anesthesia of skin; R47.81 Slurred speech; F17.200 Nicotine dependence, unspecified, uncomplicated; Z88.8 Allergy status to other drugs, medicaments and biological substances; Z79.899 Other long term (current) drug therapy
CPT/HCPCS: 36415; 70450; 70496; 70498; 71045; 80053; 84484; 85025; 85610; 85730; 93005; 93010; 99285-25; A9270; J0780; J1200; J1885; Q9967

== ENCOUNTER 2021-08-21 15:24 | Emergency (ER) | payer OTHER, BC ==
[~2021-08-21] VITALS: Ht 182.9 cm; Wt 80.3 kg
== END 2021-08-21 17:31 | disposition home or self-care (01) ==
LOC: ED 15:24
DX: S29.001A Unspecified injury of muscle and tendon of front wall of thorax, initial encounter (principal); G43.909 Migraine, unspecified, not intractable, without status migrainosus; F17.200 Nicotine dependence, unspecified, uncomplicated; Z88.8 Allergy status to other drugs, medicaments and biological substances; Z79.899 Other long term (current) drug therapy; Y09 Assault by unspecified means; Y99.0 Civilian activity done for income or pay
CPT/HCPCS: 71101; 99283-25

== ENCOUNTER 2022-07-28 10:51 | Emergency (ER) | payer BC ==
[~2022-07-28] VITALS: Ht 182.9 cm; Wt 80.3 kg
== END 2022-07-28 13:52 | disposition home or self-care (01) ==
LOC: ED 10:51
DX: R10.31 Right lower quadrant pain (principal); F17.200 Nicotine dependence, unspecified, uncomplicated; Z88.8 Allergy status to other drugs, medicaments and biological substances
CPT/HCPCS: 36415; 74177; 80053; 81003; 83690; 85025; 96361; 99284-25; J1885; J7030; Q9967

== ENCOUNTER 2023-11-03 14:07 | Emergency (ER) | payer BC ==
[~2023-11-03] VITALS: Ht 182.9 cm; Wt 80.0 kg
[2023-11-03 16:12] VITALS: BP 107/58
== END 2023-11-03 16:12 | disposition home or self-care (01) ==
LOC: ED 14:07
DX: S60.131A Contusion of right middle finger with damage to nail, initial encounter (principal); F17.200 Nicotine dependence, unspecified, uncomplicated; W23.0XXA Caught, crushed, jammed, or pinched between moving objects, initial encounter; Z88.8 Allergy status to other drugs, medicaments and biological substances
CPT/HCPCS: 29125; 99283-25